=== PATIENT | female | born 1980 | race American Indian/Alaskan Native ===

== ENCOUNTER 2017-12-21 12:12 | Emergency (ER) | payer SELFPAY ==
[2017-12-21 12:26] VITALS: BP 140/92
[2017-12-21] MEDS ORDERED: TYLENOL PO ONE (13:12)
--- NOTE | 2017-12-21 13:18 | Emergency Department Report ---
ED Head Trauma HPI - General Chief complaint: Head Injury Stated complaint: SWOLLEN JAW Time Seen by Provider: 12/21/17 12:52 Source: patient Mode of arrival: Ambulatory Limitations: No Limitations - History of Present Illness Initial comments: Patient is a 37 years old female presented to the ER complaining of right jaw swelling after she was hit by a metal accidentally and her job. Patient denied any head injury or loss of consciousness. No weakness, numbness or tingling sensation. MD Complaint: head injury - Related Data Allergies/Adverse reactions: Allergies Allergy/AdvReac Type Severity Reaction Status Date / Time No Known Allergies Allergy Unverified 12/21/17 12:25 ED Review of Systems ROS: Stated complaint: SWOLLEN JAW Other details as noted in HPI Comment: All other systems reviewed and negative Constitutional: denies: chills, fever Respiratory: denies: cough, orthopnea, shortness of breath, SOB with exertion Cardiovascular: denies: chest pain, palpitations, dyspnea on exertion Gastrointestinal: denies: abdominal pain, nausea, vomiting Musculoskeletal: denies: back pain Neurological: denies: headache, weakness, numbness ED Past Medical Hx - Past Medical History Previous Medical History?: Yes Additional medical history: Congenital adrenal hyperplasia - Surgical History Past Surgical History?: No - Social History Smoking Status: Never Smoker Substance Use Type: None ED Physical Exam - General Limitations: No Limitations General appearance: alert, in no apparent distress - Head Head exam: Present: atraumatic, normocephalic, normal inspection - ENT ENT exam: Present: other (right jaw joint tenderness) - Respiratory Respiratory exam: Present: normal lung sounds bilaterally. Absent: respiratory distress, wheezes, chest wall tenderness, accessory muscle use, decreased breath sounds - Cardiovascular Cardiovascular Exam: Present: regular rate, normal rhythm, normal heart sounds - GI/Abdominal GI/Abdominal exam: Present: soft, normal bowel sounds. Absent: distended, tenderness, guarding, rebound, rigid, organomegaly, mass, bruit, pulsatile mass , hernia - Extremities Exam Extremities exam: Present: normal inspection, full ROM, normal capillary refill - Back Exam Back exam: Present: normal inspection, full ROM. Absent: tenderness, CVA tenderness (R), muscle spasm, paraspinal tenderness, vertebral tenderness - Neurological Exam Neurological exam: Present: alert, oriented X3, CN II-XII intact, normal gait, reflexes normal - Skin Skin exam: Present: warm, intact, normal color ED Course Vital Signs 12/21/17 12:19 Temperature 98.4 F Pulse Rate 75 Respiratory 18 Rate Blood Pressure 140/92 O2 Sat by Pulse 99 Oximetry - Medical Decision Making Patient received a call from her employer asking to go to another facility because it's a work compensation. Patient left in a stable condition. Critical care attestation.: If time is entered above; I have spent that time in minutes in the direct care of this critically ill patient, excluding procedure time. ED Disposition Clinical Impression: Head injury Disposition: DC-01 TO HOME OR SELFCARE Is pt being admited?: No Condition: Stable Instructions: Minor Head Injury (ED) Referrals: PRIMARY CARE, [Primary Care Provider] - 3-5 Days
== END 2017-12-21 13:31 | disposition home or self-care (01) ==
LOC: EDSEX → ED 12:12
DX: S09.8XXA Other specified injuries of head, initial encounter (principal); W22.8XXA Striking against or struck by other objects, initial encounter; Y93.89 Activity, other specified; Y99.8 Other external cause status; Y92.89 Other specified places as the place of occurrence of the external cause

== ENCOUNTER 2019-05-12 17:10 | Inpatient (IN) | payer OTHER ==
[2019-05-12] MEDS ORDERED: DEXTROSE 50% IN WATER (25GM) 50 ML SYRINGE IV ONE (17:45)
[2019-05-12] MEDS ORDERED: SODIUM CHLORIDE 0.9% 1000 ML 2,000 ML ONE (17:46)
[2019-05-12] MEDS ORDERED: ACETAMINOPHEN 650 MG RECT SUPP PR ONE (18:06)
[2019-05-12] MEDS ORDERED: SODIUM CHLORIDE 0.9% 1000 ML 1,000 ML IV ONE ×2 (18:06→18:09)
--- NOTE | 2019-05-12 18:14 | Emergency Department Report ---
ED General Adult HPI - General Chief complaint: Upper Respiratory Infection Stated complaint: AMS Time Seen by Provider: 05/12/19 18:01 Source: patient Mode of arrival: Ambulatory Limitations: No Limitations - History of Present Illness Initial comments: Patient is 38 years old female with history of congenital adrenal hyperplasia. Patient presented to the emergency room via EMS for evaluation of altered mental status. Patient found to have a blood glucose of 48, temperature 102 and tachycardia with a heart rate of 130. Patient is obtunded. No family at bedside. EMS unable to provide further information. Patient is coughing while am examining her. Sepsis protocol initiated. - Related Data Allergies Allergy/AdvReac Type Severity Reaction Status Date / Time No Known Allergies Allergy Unverified 12/21/17 12:25 ED Review of Systems ROS: Stated complaint: AMS Other details as noted in HPI Comment: Unobtainable due to pts medical conditions ED Past Medical Hx - Past Medical History Previous Medical History?: Yes Additional medical history: Congenital adrenal hyperplasia - Surgical History Past Surgical History?: Yes - Social History Smoking Status: Current Some Day Smoker Substance Use Type: None ED Physical Exam - General Limitations: No Limitations General appearance: obtunded - Head Head exam: Present: atraumatic, normocephalic, normal inspection - Eye Eye exam: Present: normal appearance - ENT ENT exam: Present: normal exam, normal orophraynx, mucous membranes moist - Neck Neck exam: Present: normal inspection, full ROM. Absent: tenderness, meningismus - Respiratory Respiratory exam: Present: rales. Absent: wheezes, rhonchi, stridor, accessory muscle use, decreased breath sounds, prolonged expiratory - Cardiovascular Cardiovascular Exam: Present: tachycardia - GI/Abdominal GI/Abdominal exam: Present: soft, normal bowel sounds. Absent: distended, tenderness, guarding, rebound, rigid - Extremities Exam Extremities exam: Present: normal inspection, full ROM, normal capillary refill - Back Exam Back exam: Present: normal inspection, full ROM. Absent: CVA tenderness (R), CVA tenderness (L) - Neurological Exam Neurological exam: Present: altered - Skin Skin exam: Present: warm, intact, normal color ED Course Vital Signs 05/12/19 05/12/19 05/12/19 17:38 17:54 18:00 Temperature 103.1 F H Pulse Rate 122 H 117 H Respiratory 26 H 23 Rate Blood Pressure O2 Sat by Pulse 80 L 69 L Oximetry 05/12/19 05/12/19 05/12/19 18:15 18:31 18:45 Temperature Pulse Rate 121 H 134 H 126 H Respiratory 20 26 H 22 Rate Blood Pressure 129/103 141/92 O2 Sat by Pulse 89 96 96 Oximetry 05/12/19 05/12/19 05/12/19 19:00 19:34 20:00 Temperature Pulse Rate Respiratory 20 Rate Blood Pressure 111/69 101/42 103/49 O2 Sat by Pulse 96 73 L 98 Oximetry 05/12/19 05/12/19 21:01 21:23 Temperature 98.9 F Pulse Rate 113 H Respiratory 21 Rate Blood Pressure 105/60 O2 Sat by Pulse Oximetry ED Medical Decision Making - Lab Data Result diagrams: 05/12/19 18:17 05/12/19 18:32 - Radiology Data Radiology results: report reviewed - Medical Decision Making Patient is 38 years old female with history of congenital adrenal hyperplasia. Patient presented to the emergency room via EMS for evaluation of altered mental status. Patient found to have a blood glucose of 48, temperature 102 and tachycardia with a heart rate of 130. Patient is obtunded. No family at bedside. EMS unable to provide further information. Patient is coughing while am examining her. Sepsis protocol initiated. Patient received 3 L of normal saline with significant improvement in mental status and blood pressure. Patient evaluated by me multiple times. Patient stated that she is feeling better. Patient is awake alert and oriented 3. Patient denied any headache, chest pain or shortness of breath. Patient lactic acid went down from 4.6 to 1.9. Chest x-ray is unremarkable. Labs showed elevated white blood cells. Patient received Zosyn. CT brain and CT abdomen and pelvis is unremarkable. I discussed the patient was Dr. Solomon, he agreed to admit the patient to medical service for further management. Critical Care Time: Yes Critical care time in (mins) excluding proc time.: 30 Critical care attestation.: If time is entered above; I have spent that time in minutes in the direct care of this critically ill patient, excluding procedure time. ED Disposition Clinical Impression: Altered mental status, Hypoglycemia, Sepsis Disposition: OP ADMIT IP TO THIS HOSP Is pt being admited?: Yes Condition: Stable
[2019-05-12 18:52] LABS: Hemoglobin 15.3 gm/dl (10.1-14.3); Mean Corpuscular HGB Conc 33 % (30-34); Mean Corpuscular Volume 85 fl (79-97); Platelet Count 117 K/mm3 (140-440); Red Blood Count 5.41 M/mm3 (3.65-5.03); Red Cell Distribution Width 13.1 % (13.2-15.2)
[2019-05-12] MEDS ORDERED: PIPERACILLIN/TAZOBACTAM 3.375 3.375 GM/50 ML BAG IV ONE (18:56)
[2019-05-12] MEDS ORDERED: DEXTROSE 10% IN WATER 1,000 ML IV SCH (19:00)
[2019-05-12 19:08] LABS: Albumin 3.8 g/dL (3.9-5); Calcium 8.5 mg/dL (8.4-10.2)
--- NOTE | 2019-05-12 19:47 | XRay Report ---
CHEST 1 VIEW INDICATION: chest pain. COMPARISON: None. FINDINGS: Support devices: None. Heart: Within normal limits. Lungs/Pleura: No acute air space or interstitial disease. Additional findings: None. IMPRESSION: No acute abnormality. Signer Name: Pantera Weber MD Signed: 05/12/2019 7:43 PM Workstation Name: [id number]
--- NOTE | 2019-05-12 19:53 | Cat Scan Report ---
CT head/brain wo con INDICATION / CLINICAL INFORMATION: 38 years Female; AMS. TECHNIQUE: Routine CT head without contrast. All CT scans at this location are performed using CT dos e reduction for ALARA by means of automated exposure control. COMPARISON: None. FINDINGS: BRAIN / INTRACRANIAL CONTENTS: The brain appears to demonstrate appropriate attenuation. The ventricu lar system is within normal limits in size and configuration. There is no CT evidence of acute intrac ranial hemorrhage. ORBITS: No significant abnormality of visualized orbits. SINUSES / MASTOIDS: There is scattered at mucosal thickening within the maxillary and visualized ethm oid sinuses. There is also mild mucosal thickening within the right sphenoid sinus. There is incident al note of an empty sella. CRANIOCERVICAL JUNCTION: There is crowding of the cerebellar tonsils at the level the foramen magnum indicative of cerebellar tonsillar ectopia. Again, the ventricular system appears to be appropriate i n size on this single exam. ADDITIONAL FINDINGS: None. IMPRESSION: 1. 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 There is no evidence of hydrocephalus on this single exam or acute intracranial process. 2. There is sinus inflammatory disease as detailed above.. Signer Name: Norman Andrade MD Signed: 05/12/2019 7:49 PM Workstation Name: [id number]
[2019-05-12 21:04] LABS: Basophils % (Manual) 0 % (0.0-1.8); Eosinophils % (Manual) 0 % (0.0-4.3); Total Cells Counted 100
[2019-05-12 21:05] LABS: Anisocytosis Few; Platelet Estimate Consistent w Auto; Poikilocytosis Few
[2019-05-12 21:17] LABS: Bilirubin,Urine NEG (Negative); Blood,Urine LG (Negative); Color,Urine Amber (Yellow); Mucus,Urine FEW /HPF
[2019-05-12] MEDS ORDERED: ONDANSETRON 4 MG/2 ML INJ ONE (21:18)
[2019-05-12 21:23] LABS: Amphetamine Screen,Urine PRESUMPTIVE NEGATIVE; Benzodiazepines Screen,Urine PRESUMPTIVE NEGATIVE; Cannabinoid Screen,Urine PRESUMPTIVE NEGATIVE; Cocaine Screen,Urine PRESUMPTIVE NEGATIVE; Methadone Screen,Urine PRESUMPTIVE NEGATIVE; Opiate Screen,Urine PRESUMPTIVE NEGATIVE
[2019-05-12] MEDS ORDERED: LORazepam 2 MG/ML VIAL ONE (21:30)
[2019-05-12] MEDS: SODIUM CHLORIDE 0.9% 1000 ML 1,000 ML IV SCH (22:00)
--- NOTE | 2019-05-12 23:00 | Cat Scan Report ---
CT ABDOMEN AND PELVIS WITH CONTRAST INDICATION: Unspecified abdominal pain. COMPARISON: No relevant prior imaging study available. TECHNIQUE: Axial, coronal and sagittal CT imaging of the abdomen and pelvis was performed after inje ction of 100 cc Omnipaque [address] scans at this location are performed using CT dose re duction for ALARA by means of automated exposure control. FINDINGS: LOWER CHEST: There is mild bibasilar atelectasis. No additional significant abnormality. LIVER: No significant abnormality. BILIARY: No significant abnormality. PANCREAS: No significant abnormality. SPLEEN: No significant abnormality. ADRENALS: No significant abnormality. KIDNEYS AND URETERS: No significant abnormality. GI TRACT: No significant abnormality of the stomach, small bowel or colon. Unremarkable appendix. PERITONEUM: No free fluid. No free air. No fluid collection. LYMPH NODES: No significant adenopathy. VASCULATURE: No significant abnormality. URINARY BLADDER: No significant abnormality. REPRODUCTIVE ORGANS: A left Bartholin gland cyst measures 2.4 x 2.0 cm on image 94 of series 4. Multi ple probable fibroids measuring up to 3.5 cm are seen within the uterus without an additional signifi cant abnormality. ADDITIONAL FINDINGS: None. SKELETAL SYSTEM: There are mild degenerative changes throughout the spine and along the SI joints wit hout an acute abnormality. IMPRESSION: 1. No acute abnormality of the abdomen or pelvis. 2. Additional findings as above. Signer Name: Alfonso Ortiz MD Signed: 05/12/2019 10:56 PM Workstation Name: [id number]
[2019-05-12] MEDS ORDERED: LORazepam 2 MG/ML VIAL IV ONE (23:47)
[2019-05-13] MEDS ORDERED: MAGNESIUM HYDROXIDE (MOM) ORAL LIQD UDC PO PRN (00:18)
[2019-05-13] MEDS ORDERED: ACETAMINOPHEN 325 MG TAB PO PRN ×2 (00:18→20:21)
[2019-05-13] MEDS ORDERED: ONDANSETRON 4 MG/2 ML INJ IV PRN (00:18)
[2019-05-13] MEDS: PIPERACILLIN/TAZOBACTAM 3.375 3.375 GM/50 ML BAG IV SCH ×2 (06:13→14:05)
[2019-05-13] MEDS: SODIUM CHLORIDE 0.9% 1000 ML 1,000 ML IV SCH ×2 (07:54→16:49)
--- NOTE | 2019-05-13 07:54 | History and Physical Report ---
History of Present Illness Date of examination: 05/12/19 Date of admission: 05/12/19 23:27 Chief complaint: Altered mental status. History of present illness: 38-year-old female with known history of congenital adrenal hyperplasia presented to the emergency room today with a change in mental status. Family members who accompany patient to the ER indicates she has not been acting her usual self over the past 24 hours. She had a low blood sugar glucose of about 48 prior to arrival in the emergency room. Upon arrival in the emergency room she had a temperature of about 103.2, was found to be tachycardic, had elevated white counts and elevated lactic acid. She was started on IV fluid and also on empiric IV antibiotics Her chest x-ray or CT scan of the head, abdomen and pelvis were within normal limits. Past History Past Surgical History: No surgical history Social history: smoking (Current some day smoker) Family history: no significant family history Medications and Allergies Allergies Allergy/AdvReac Type Severity Reaction Status Date / Time No Known Allergies Allergy Unverified 12/21/17 12:25 Active Meds: Active Medications Acetaminophen (Tylenol) 650 mg PO Q6H PRN PRN Reason: Pain MILD(1-3)/Fever >100.5/DACOSTA Sodium Chloride (Nacl 0.9% 1000 Ml) 1,000 mls @ 0 mls/hr IV ONCE YOAV Stop: 05/13/19 23:46 Last Admin: 05/12/19 22:00 Dose: 999 mls/hr Documented by: Sodium Chloride (Nacl 0.9% 1000 Ml) 1,000 mls @ 125 mls/hr IV DIRECT YOAV Piperacillin Sod/Tazobactam Sod (Zosyn/Ns 3.375gm/50ml) 3.375 gm in 50 mls @ 100 mls/hr IV Q8HR YOAV; Protocol Last Admin: 05/13/19 06:13 Dose: 100 mls/hr Documented by: Magnesium Hydroxide (Milk Of Magnesia) 30 ml PO Q4H PRN PRN Reason: Constipation Ondansetron HCl (Zofran) 4 mg IV Q8H PRN PRN Reason: Nausea And Vomiting Sodium Chloride (Sodium Chloride Flush Syringe 10 Ml) 10 ml IV BID YOAV Sodium Chloride (Sodium Chloride Flush Syringe 10 Ml) 10 ml IV PRN PRN PRN Reason: LINE FLUSH Review of Systems ROS unobtainable: due to mental status Neurological: other (Altered mental status) Endocrine: other (Hypoglycemia) Exam - Constitutional Vitals: Temp Pulse Resp BP Pulse Ox 99.7 F H 108 H 18 111/44 98 05/13/19 04:00 05/13/19 04:00 05/13/19 02:31 05/13/19 05:00 05/12/19 20:00 General appearance: Present: no acute distress, well-nourished - EENT Eyes: Present: PERRL, EOM intact ENT: hearing intact, clear oral mucosa, dentition normal - Neck Neck: Present: supple, normal ROM - Respiratory Respiratory effort: normal Respiratory: bilateral: CTA - Cardiovascular Rhythm: regular Heart Sounds: Present: S1 & S2 - Extremities Extremities: no ischemia, pulses intact, No edema, Full ROM Peripheral Pulses: within normal limits - Abdominal General gastrointestinal: Present: soft, non-tender, non-distended - Integumentary Integumentary: Present: clear, warm, dry - Musculoskeletal Musculoskeletal: strength equal bilaterally - Psychiatric Psychiatric: other (Patient appeared slightly confused) - Neurologic Neurologic: CNII-XII intact, moves all extremities Results - Labs CBC & Chem 7: 05/12/19 18:17 05/12/19 18:32 Labs: Abnormal lab results 05/12/19 05/12/19 05/12/19 Range/Units 17:56 18:17 18:17 WBC 14.1 H (4.5-11.0) K/mm3 RBC 5.41 H (3.65-5.03) M/mm3 Hgb 15.3 H (10.1-14.3) gm/dl Hct 46.0 H (30.3-42.9) % RDW 13.1 L (13.2-15.2) % Plt Count 117 L (140-440) K/mm3 Seg Neuts % (Manual) 80.0 H (40.0-70.0) % Lymphocytes % (Manual) 13.0 L (13.4-35.0) % Seg Neutrophils # Man 11.3 H (1.8-7.7) K/mm3 Monocytes # (Manual) 1.0 H (0.0-0.8) K/mm3 Sodium (137-145) mmol/L Carbon Dioxide (22-30) mmol/L BUN (7-17) mg/dL Creatinine (0.7-1.2) mg/dL Glucose (65-100) mg/dL POC Glucose 53 L (70-105) Lactic Acid 4.80 H* (0.7-2.0) mmol/L Total Bilirubin (0.1-1.2) mg/dL Albumin (3.9-5) g/dL 05/12/19 05/12/19 05/12/19 Range/Units 18:21 18:32 23:28 WBC (4.5-11.0) K/mm3 RBC (3.65-5.03) M/mm3 Hgb (10.1-14.3) gm/dl Hct (30.3-42.9) % RDW (13.2-15.2) % Plt Count (140-440) K/mm3 Seg Neuts % (Manual) (40.0-70.0) % Lymphocytes % (Manual) (13.4-35.0) % Seg Neutrophils # Man (1.8-7.7) K/mm3 Monocytes # (Manual) (0.0-0.8) K/mm3 Sodium 133 L (137-145) mmol/L Carbon Dioxide 14 L (22-30) mmol/L BUN 18 H (7-17) mg/dL Creatinine 1.4 H (0.7-1.2) mg/dL Glucose 136 H (65-100) mg/dL POC Glucose 140 H (70-105) Lactic Acid 2.70 H* (0.7-2.0) mmol/L Total Bilirubin 5.10 H (0.1-1.2) mg/dL Albumin 3.8 L (3.9-5) g/dL Assessment and Plan - Patient Problems (1) Altered mental status Current Visit: Yes Status: Acute Plan to address problem: Etiology is unclear however this may be secondary to sepsis. Patient has been placed on IV fluid and empiric IV antibiotics. (2) Hypoglycemia Current Visit: Yes Status: Acute Plan to address problem: We will monitor blood glucose. (3) Sepsis Current Visit: Yes Status: Acute Plan to address problem: She has been placed on empiric IV antibiotics and IV fluid. (4) DVT prophylaxis Current Visit: Yes Status: Acute Plan to address problem: Patient is placed on subcutaneous heparin. (5) Full code status Current Visit: Yes Status: Acute
[2019-05-13] MEDS ORDERED: ACETAMINOPHEN 650 MG RECT SUPP PR PRN (10:50)
--- NOTE | 2019-05-13 14:48 | Progress Note ---
Assessment and Plan Assessment and plan: SIRS/Possible severe sepsis -exact source of inf unknown -CT abd/pelvis and CXR neg -on IV antibiotics with zosyn -blood and sputum cultures pending -ID consulted Acute metabolic encephalopathy -probably 2/2 above -Head CT scan showed cerebellar tonsilar ectopia with empty sella. No acute IC abns -drug screen neg -neurology consulted Acute respt failure with hypoxia -cont 02 supplementation as needed and neb tx Thrombocytopenia -no overt bleeding -will monitor level Hx of congenital adrenal hyperplasia -CT abd/pelvis showed multiple uterine fibroids with LT bartholin gland cyst DVT ppx: SCD due to thrombocytopenia Disp: condition is guarded. cont tx in the MICU History Interval history: Pt is unable to communicate appropriately. Per her nurse, she's having excessive mucus Hospitalist Physical - Constitutional Vitals: Temp Pulse Resp BP Pulse Ox 102.7 F H 115 H 17 114/70 98 05/13/19 08:00 05/13/19 10:01 05/13/19 10:01 05/13/19 10:01 05/13/19 10:01 General appearance: Present: no acute distress, well-nourished - EENT Eyes: Present: PERRL, EOM intact ENT: hearing intact, other (excessive mucus) - Neck Neck: Present: supple - Respiratory Respiratory effort: normal Respiratory: bilateral: rales (bilaterally) - Cardiovascular Rhythm: regular (with tachycardia) Heart Sounds: Present: S1 & S2 - Extremities Extremities: No edema - Abdominal General gastrointestinal: soft, non-tender, normal bowel sounds - Integumentary Integumentary: Present: warm, dry - Psychiatric Psychiatric: other (unable to assess due to AMS) - Neurologic Neurologic: other (pt is disoriented x3) Results - Labs CBC & Chem 7: 05/12/19 18:17 05/12/19 18:32 Labs: Laboratory Last Values WBC 14.1 K/mm3 (4.5-11.0) H 05/12/19 18:17 RBC 5.41 M/mm3 (3.65-5.03) H 05/12/19 18:17 Hgb 15.3 gm/dl (10.1-14.3) H 05/12/19 18:17 Hct 46.0 % (30.3-42.9) H 05/12/19 18:17 MCV 85 fl (79-97) 05/12/19 18:17 MCH 28 pg (28-32) 05/12/19 18:17 MCHC 33 % (30-34) 05/12/19 18:17 RDW 13.1 % (13.2-15.2) L 05/12/19 18:17 Plt Count 117 K/mm3 (140-440) L 05/12/19 18:17 [place] % (Auto) Critical Care Transport Nurse 05/12/19 18:17 Add Manual Diff Complete 05/12/19 18:17 Total Counted 100 05/12/19 18:17 Seg Neuts % (Manual) 80.0 % (40.0-70.0) H 05/12/19 18:17 Band Neutrophils % 0 % 05/12/19 18:17 Lymphocytes % (Manual) 13.0 % (13.4-35.0) L 05/12/19 18:17 Reactive Lymphs % (Man) 0 % 05/12/19 18:17 Monocytes % (Manual) 7.0 % (0.0-7.3) 05/12/19 18:17 Eosinophils % (Manual) 0 % (0.0-4.3) 05/12/19 18:17 Basophils % (Manual) 0 % (0.0-1.8) 05/12/19 18:17 Metamyelocytes % 0 % 05/12/19 18:17 Myelocytes % 0 % 05/12/19 18:17 Promyelocytes % 0 % 05/12/19 18:17 Blast Cells % 0 % 05/12/19 18:17 Nucleated RBC % Not Reportable 05/12/19 18:17 Seg Neutrophils # Man 11.3 K/mm3 (1.8-7.7) H 05/12/19 18:17 Band Neutrophils # 0.0 K/mm3 05/12/19 18:17 Lymphocytes # (Manual) 1.8 K/mm3 (1.2-5.4) 05/12/19 18:17 Abs React Lymphs (Man) 0.0 K/mm3 05/12/19 18:17 Monocytes # (Manual) 1.0 K/mm3 (0.0-0.8) H 05/12/19 18:17 Eosinophils # (Manual) 0.0 K/mm3 (0.0-0.4) 05/12/19 18:17 Basophils # (Manual) 0.0 K/mm3 (0.0-0.1) 05/12/19 18:17 Metamyelocytes # 0.0 K/mm3 05/12/19 18:17 Myelocytes # 0.0 K/mm3 05/12/19 18:17 Promyelocytes # 0.0 K/mm3 05/12/19 18:17 Blast Cells # 0.0 K/mm3 05/12/19 18:17 WBC Morphology Not Reportable 05/12/19 18:17 Hypersegmented Neuts Not Reportable 05/12/19 18:17 Hyposegmented Neuts Not Reportable 05/12/19 18:17 Hypogranular Neuts Not Reportable 05/12/19 18:17 Smudge Cells Not Reportable 05/12/19 18:17 Toxic Granulation Not Reportable 05/12/19 18:17 Toxic Vacuolation Not Reportable 05/12/19 18:17 Dohle Bodies Not Reportable 05/12/19 18:17 Pelger-Huet Anomaly Not Reportable 05/12/19 18:17 Joesph Rods Not Reportable 05/12/19 18:17 Platelet Estimate Consistent w auto 05/12/19 18:17 Clumped Platelets Not Reportable 05/12/19 18:17 Plt Clumps, EDTA Not Reportable 05/12/19 18:17 Large Platelets Not Reportable 05/12/19 18:17 Giant Platelets Not Reportable 05/12/19 18:17 Platelet Satelliting Not Reportable 05/12/19 18:17 Plt Morphology Comment Not Reportable 05/12/19 18:17 RBC Morphology Not Reportable 05/12/19 18:17 Dimorphic RBCs Not Reportable 05/12/19 18:17 Polychromasia Rare 05/12/19 18:17 Hypochromasia Not Reportable 05/12/19 18:17 Poikilocytosis Few 05/12/19 18:17 Anisocytosis Few 05/12/19 18:17 Microcytosis Not Reportable 05/12/19 18:17 Macrocytosis Not Reportable 05/12/19 18:17 Spherocytes Not Reportable 05/12/19 18:17 Pappenheimer Bodies Not Reportable 05/12/19 18:17 Sickle Cells Not Reportable 05/12/19 18:17 Target Cells Not Reportable 05/12/19 18:17 Tear Drop Cells Not Reportable 05/12/19 18:17 Ovalocytes Not Reportable 05/12/19 18:17 Helmet Cells Not Reportable 05/12/19 18:17 [place] Bodies Not Reportable 05/12/19 18:17 [place] Rings Not Reportable 05/12/19 18:17 Rekha Cells Not Reportable 05/12/19 18:17 Bite Cells Not Reportable 05/12/19 18:17 Crenated Cell Not Reportable 05/12/19 18:17 Elliptocytes Not Reportable 05/12/19 18:17 Acanthocytes (Spur) Not Reportable 05/12/19 18:17 Rouleaux Not Reportable 05/12/19 18:17 Hemoglobin C Crystals Not Reportable 05/12/19 18:17 Schistocytes Not Reportable 05/12/19 18:17 Malaria parasites Not Reportable 05/12/19 18:17 Denzel Bodies Not Reportable 05/12/19 18:17 Hem Pathologist Commnt No 05/12/19 18:17 Sodium 133 mmol/L (137-145) L 05/12/19 18:32 Potassium 3.7 mmol/L (3.6-5.0) 05/12/19 18:32 Chloride 98.4 mmol/L (98-107) 05/12/19 18:32 Carbon Dioxide 14 mmol/L (22-30) L 05/12/19 18:32 Anion Gap 24 mmol/L 05/12/19 18:32 BUN 18 mg/dL (7-17) H 05/12/19 18:32 Creatinine 1.4 mg/dL (0.7-1.2) H 05/12/19 18:32 Estimated GFR 50 ml/min 05/12/19 18:32 BUN/Creatinine Ratio 13 % 05/12/19 18:32 Glucose 136 mg/dL (65-100) H 05/12/19 18:32 POC Glucose 93 (70-105) 05/13/19 02:07 Lactic Acid 1.20 mmol/L (0.7-2.0) 05/13/19 01:08 Calcium 8.5 mg/dL (8.4-10.2) 05/12/19 18:32 Total Bilirubin 5.10 mg/dL (0.1-1.2) H 05/12/19 18:32 AST 38 units/L (5-40) 05/12/19 18:32 ALT 15 units/L (7-56) 05/12/19 18:32 Alkaline Phosphatase 60 units/L (35-129) 05/12/19 18:32 Total Protein 6.4 g/dL (6.3-8.2) 05/12/19 18:32 Albumin 3.8 g/dL (3.9-5) L 05/12/19 18:32 Albumin/Globulin Ratio 1.5 % 05/12/19 18:32 Urine Color [place] (Yellow) 05/12/19 21:05 Urine Turbidity Slightly-cloudy (Clear) 05/12/19 21:05 Urine pH 5.0 (5.0-7.0) 05/12/19 21:05 Ur Specific [place] 1.021 (1.003-1.030) 05/12/19 21:05 Urine Protein 30 mg/dl mg/dL (Negative) 05/12/19 21:05 Urine Glucose (UA) 50 mg/dL (Negative) 05/12/19 21:05 Urine Ketones 20 mg/dL (Negative) 05/12/19 21:05 Urine Blood Lg (Negative) 05/12/19 21:05 Urine Nitrite Neg (Negative) 05/12/19 21:05 Urine Bilirubin Neg (Negative) 05/12/19 21:05 Urine Urobilinogen 2.0 mg/dL (<2.0) 05/12/19 21:05 Ur Leukocyte Esterase Neg (Negative) 05/12/19 21:05 Urine WBC (Auto) 1.0 /HPF (0.0-6.0) 05/12/19 21:05 Urine RBC (Auto) 30.0 /HPF (0.0-6.0) 05/12/19 21:05 Urine Mucus Few /HPF 05/12/19 21:05 Urine Opiates Screen Presumptive negative 05/12/19 21:05 Urine Methadone Screen Presumptive negative 05/12/19 21:05 Ur Barbiturates Screen Presumptive negative 05/12/19 21:05 Ur Phencyclidine Scrn Presumptive negative 05/12/19 21:05 Ur Amphetamines Screen Presumptive negative 05/12/19 21:05 U Benzodiazepines Scrn Presumptive negative 05/12/19 21:05 Urine Cocaine Screen Presumptive negative 05/12/19 21:05 U Marijuana (THC) Screen Presumptive negative 05/12/19 21:05 Drugs of Abuse Note Disclamer 05/12/19 21:05 Plasma/Serum Alcohol < 0.01 % (0-0.07) 05/12/19 20:23 Active Medications - Current Medications Current Medications: Generic Name Dose Route Start Last Admin Trade Name Freq PRN Reason Stop Dose Admin Acetaminophen 650 mg 05/13/19 10:50 Tylenol AK Q6H PRN Pain, Mild (1-3)/Temp >100.5 Sodium Chloride 1,000 mls @ 0 mls/hr 05/12/19 23:45 05/12/19 22:00 Nacl 0.9% 1000 Ml IV 05/13/19 23:46 999 mls/hr ONCE YOAV Administration As Directed Sodium Chloride 1,000 mls @ 125 mls/hr 05/13/19 00:30 05/13/19 07:54 Nacl 0.9% 1000 Ml IV 125 mls/hr DIRECT YOAV Administration Piperacillin Sod/Tazobactam Sod 3.375 gm in 50 mls @ 100 mls/hr 05/13/19 06:00 05/13/19 14:05 Zosyn/Ns 3.375gm/50ml IV 100 mls/hr Q8HR YOAV Administration Protocol Magnesium Hydroxide 30 ml 05/13/19 00:18 Milk Of Magnesia PO Q4H PRN Constipation Ondansetron HCl 4 mg 05/13/19 00:18 Zofran IV Q8H PRN Nausea And Vomiting Sodium Chloride 10 ml 05/13/19 10:00 05/13/19 11:11 Sodium Chloride Flush Syringe 10 Ml IV 10 ml BID YOAV Administration Sodium Chloride 10 ml 05/13/19 00:18 Sodium Chloride Flush Syringe 10 Ml IV PRN PRN LINE FLUSH Nutrition/Malnutrition Assess - Dietary Evaluation Nutrition/Malnutrition Findings: Nutrition Notes Start: 05/13/19 13:25 Freq: Status: Active Protocol: Document 05/13/19 13:25 DW (Rec: 05/13/19 13:40 DW [id number]) Co-Sign 05/13/19 13:25 LM Nutrition Notes Need for Assessment generated from: MD Order,consultant [employer]. vice president [employer] (ex ),MST, Education Initial or Follow up Brief Note Current Diagnosis Sepsis Other Pertinent Diagnosis Congenital Adrenal Hyperplasia , AMS, Hypoglycemia, DVT Current Diet Cardiac Diet Labs/Tests Glu 136 Pertinent Medications Reviewed Height 5 ft 4 in Weight 64.864 kg [place] Body Weight (kg) 54.54 BMI 24.5 Weight Status Appropriate Subjective/Other Information MD consult for education/RN screen for MST Per nurse pt did not eat breakfast. Nurse said pt throat is sore. Unable to obtain nutrition related hx d/ t AMS Burn Absent Trauma Absent Is patient on ventilator? No Is Patient Ambulatory and/or Out of Bed No REE-(Hughes-St. Jeor-confined to bed) 9210.297 Calculation Used for Recommendations Hughes-St Jeor Additional Notes PRO needs: 52-65g (0.8-1 g/kg) Fluid needs: 1 ml/kcal Nutrition Intervention Change Diet Order: Continue Current Diet Anticipated Discharge Needs: Cardiac Diet Follow-Up By: 05/14/19 Additional Comments FU for assessment/diet education needs
--- NOTE | 2019-05-13 14:58 | Consultation ---
History of Present Illness - Reason for Consult Consult date: 05/13/19 Sepsis Requesting physician: PATRICIO LANIER - History of Present Illness The patient is a 38-year-old female with known history of congenital adrenal hyperplasia admitted yesterday with AMS and fever. Found to have low glucose of 48, fever, leucocytosis and sepsis. Apparently she was complaining of sore throat for a few days prior to coming in. Was empirically started on abx. ID was consulted for additional evaluation. Mental status improving at the time of my evaluation. pile driver operator helper by occupation. Does not take any home medications. Patient stopped taking her meds when she turned 19 when she could not pay for her meds. Review of Systems: General: fever, chills HEENT: no new visual disturbance Respiratory: No cough, sputum, hemoptysis or shortness of breath Cardiovascular: No chest pain, syncope Gastrointestinal: No nausea, vomiting or diarrhea Genitourinary: No dysuria or hematuria Musculoskeletal: No new or worsening neck pain or back pain Neurologic: No headaches, seizures Hematologic: No easy bruising or bleeding Endocrine: No night sweats or acute weight loss Skin: negative for rash, jaundice Psychiatric: No suicidal or homicidal ideation Past History Past Surgical History: No surgical history Social history: smoking (Current some day smoker) Family history: no significant family history Medications and Allergies Allergies Allergy/AdvReac Type Severity Reaction Status Date / Time No Known Allergies Allergy Unverified 12/21/17 12:25 Active Meds: Active Medications Acetaminophen (Tylenol) 650 mg SC Q6H PRN PRN Reason: Pain, Mild (1-3)/Temp >100.5 Albuterol/Ipratropium (Duoneb *Not For Prn Use*) 1 ampul IH Q6HRT YOAV Sodium Chloride (Nacl 0.9% 1000 Ml) 1,000 mls @ 0 mls/hr IV ONCE YOAV Stop: 05/13/19 23:46 Last Admin: 05/12/19 22:00 Dose: 999 mls/hr Documented by: Sodium Chloride (Nacl 0.9% 1000 Ml) 1,000 mls @ 125 mls/hr IV DIRECT YOAV Last Admin: 05/13/19 07:54 Dose: 125 mls/hr Documented by: Piperacillin Sod/Tazobactam Sod (Zosyn/Ns 3.375gm/50ml) 3.375 gm in 50 mls @ 100 mls/hr IV Q8HR [facility]; Protocol Last Admin: 05/13/19 14:05 Dose: 100 mls/hr Documented by: Magnesium Hydroxide (Milk Of Magnesia) 30 ml PO Q4H PRN PRN Reason: Constipation Ondansetron HCl (Zofran) 4 mg IV Q8H PRN PRN Reason: Nausea And Vomiting Sodium Chloride (Sodium Chloride Flush Syringe 10 Ml) 10 ml IV BID [facility] Last Admin: 05/13/19 11:11 Dose: 10 ml Documented by: Sodium Chloride (Sodium Chloride Flush Syringe 10 Ml) 10 ml IV PRN PRN PRN Reason: LINE FLUSH Physical Examination - Physical Exam Narrative exam: Physical Exam: Constitutional: Alert, cooperative. No acute distress Head, Ears, Nose: Normocephalic, atraumatic. External ears, nose normal Eyes: Conjunctivae/corneas clear. No icterus. No ptosis. Neck: Supple, no meningeal signs, R neck swelling + Oral: extremely poor dentition, no thrush Cardiovascular: S1, S2 normal. Respiratory: Good air entry, clear to auscultation bilaterally GI: Soft, non-tender; bowel sounds normal. No peritoneal signs Musculoskeletal: No pedal edema, no cyanosis. Skin: No rash or abscess Hem/Lymphatic: No palpable cervical or supraclavicular nodes. No lymphangitis Psych: Mood ok. Affect normal Neurological: Awake, alert, oriented - Constitutional Vitals: Vital Signs Temp Pulse Resp BP Pulse Ox 102.7 F H 115 H 17 114/70 98 05/13/19 08:00 05/13/19 10:01 05/13/19 10:01 05/13/19 10:01 05/13/19 10:01 Temperature -Last 24 Hours Temperature 102.7 F Temperature 99.7 F Temperature 98.9 F Temperature 103.1 F Results - Labs CBC & Chem 7: 05/12/19 18:17 05/12/19 18:32 Labs: Abnormal lab results 05/12/19 05/12/19 05/12/19 Range/Units 17:56 18:17 18:17 WBC 14.1 H (4.5-11.0) K/mm3 RBC 5.41 H (3.65-5.03) M/mm3 Hgb 15.3 H (10.1-14.3) gm/dl Hct 46.0 H (30.3-42.9) % RDW 13.1 L (13.2-15.2) % Plt Count 117 L (140-440) K/mm3 Seg Neuts % (Manual) 80.0 H (40.0-70.0) % Lymphocytes % (Manual) 13.0 L (13.4-35.0) % Seg Neutrophils # Man 11.3 H (1.8-7.7) K/mm3 Monocytes # (Manual) 1.0 H (0.0-0.8) K/mm3 Sodium (137-145) mmol/L Carbon Dioxide (22-30) mmol/L BUN (7-17) mg/dL Creatinine (0.7-1.2) mg/dL Glucose (65-100) mg/dL POC Glucose 53 L (70-105) Lactic Acid 4.80 H* (0.7-2.0) mmol/L Total Bilirubin (0.1-1.2) mg/dL Albumin (3.9-5) g/dL 05/12/19 05/12/19 05/12/19 Range/Units 18:21 18:32 23:28 WBC (4.5-11.0) K/mm3 RBC (3.65-5.03) M/mm3 Hgb (10.1-14.3) gm/dl Hct (30.3-42.9) % RDW (13.2-15.2) % Plt Count (140-440) K/mm3 Seg Neuts % (Manual) (40.0-70.0) % Lymphocytes % (Manual) (13.4-35.0) % Seg Neutrophils # Man (1.8-7.7) K/mm3 Monocytes # (Manual) (0.0-0.8) K/mm3 Sodium 133 L (137-145) mmol/L Carbon Dioxide 14 L (22-30) mmol/L BUN 18 H (7-17) mg/dL Creatinine 1.4 H (0.7-1.2) mg/dL Glucose 136 H (65-100) mg/dL POC Glucose 140 H (70-105) Lactic Acid 2.70 H* (0.7-2.0) mmol/L Total Bilirubin 5.10 H (0.1-1.2) mg/dL Albumin 3.8 L (3.9-5) g/dL - Imaging and Cardiology Chest x-ray: report reviewed, image reviewed (no pneumonia) CT scan - abdomen: report reviewed, image reviewed (no acute abnormality noted) Assessment and Plan Cultures: 05/12/2019 blood culture: In progress 05/13/2019 blood culture: In progress A/P: 38-year-old female with known history of congenital adrenal hyperplasia, not on any home meds (stopped at age 19) admitted with: #Sepsis, leukocytosis: Chest x-ray without pneumonia, UA without pyuria, no urinary or abdominal symptoms. Patient is extremely poor, has been complaining of some sore throat, does seem to have some swelling on the right side of the neck, will order CT scan to evaluate for deep space infections. Mental status is much improved, no meningeal signs, unlikely meningitis. #Congenital adrenal hyperplasia: Patient stopped taking her meds when she turned 19 when she could not pay for her meds. #Acute encephalopathy: transient, now back to normal. Recs: Discontinued vancomycin Continue IV Zosyn 4.[address] soft tissue of the neck with IV contrast ordered to evaluate for deep space infections of the neck Wesley Krishnamurthy MD, FACP [facility] ([facility]) C: [phone] O: [phone] F: [phone]
[2019-05-13] MEDS: IPRATROPIUM/ALBUTEROL SULFATE 3 ML AMPUL.NEB IH SCH (19:35)
[2019-05-13] MEDS: PIPERACIL/TAZOBACTA 4.5/NS 100 4.5 GM/100 ML VIAL IV SCH (21:43)
[2019-05-14] MEDS: SODIUM CHLORIDE 0.9% 1000 ML 1,000 ML IV SCH ×2 (01:31→10:48)
[2019-05-14] MEDS: IPRATROPIUM/ALBUTEROL SULFATE 3 ML AMPUL.NEB IH SCH ×5 (02:10→21:00)
[2019-05-14 05:09] LABS: Hematocrit 39.1 % (30.3-42.9); Hemoglobin 13.4 gm/dl (10.1-14.3); Mean Corpuscular HGB Conc 34 % (30-34); Mean Corpuscular Volume 84 fl (79-97); Platelet Count 102 K/mm3 (140-440); Red Blood Count 4.67 M/mm3 (3.65-5.03); Red Cell Distribution Width 13.2 % (13.2-15.2)
[2019-05-14 05:13] LABS: INR 1.46 (0.87-1.13)
[2019-05-14 05:14] LABS: Partial Thromboplastin Time 29.6 Sec. (24.2-36.6)
[2019-05-14 05:23] LABS: BUN/Creatinine Ratio 9; Blood Urea Nitrogen 7 mg/dL (7-17); Calcium 8.2 mg/dL (8.4-10.2); Hemolysis Index 1
[2019-05-14] MEDS: PIPERACIL/TAZOBACTA 4.5/NS 100 4.5 GM/100 ML VIAL IV SCH ×3 (06:10→21:41)
[2019-05-14 06:52] LABS: Band Neutrophils # (Manual) 1.2 K/mm3; Basophils % (Manual) 0 % (0.0-1.8); Eosinophils % (Manual) 0 % (0.0-4.3); Total Cells Counted 100
[2019-05-14 06:54] LABS: Anisocytosis Few; Burr Cells Rare; Poikilocytosis Rare
[2019-05-14 06:55] LABS: Platelet Estimate Consistent w Auto
--- NOTE | 2019-05-14 13:30 | Progress Note ---
Assessment and Plan Cultures: 05/12/2019 blood culture: no growth thus far 05/13/2019 blood culture: no growth thus far A/P: 38-year-old female with known history of congenital adrenal hyperplasia, not on any home meds (stopped at age 19) admitted with: #Sepsis, leukocytosis: Chest x-ray without pneumonia, UA without pyuria, no urinary or abdominal symptoms. Improving. Patient has extremely poor dentition, has been complaining of some sore throat, does seem to have some swelling on the right side of the neck, awaiting CT scan results to evaluate for deep space infections. Mental status is much improved, no meningeal signs, unlikely meningitis. #Congenital adrenal hyperplasia: Patient stopped taking her meds when she turned 19 when she could not pay for her meds. #Acute encephalopathy: transient, now back to normal. Recs: Continue IV Zosyn 4.5 gm q8 hrs f/u blood culture and CT neck results Wesley Krishnamurthy MD, FACP [facility] ([facility]) C: [phone] O: [phone] F: [phone] Subjective Date of service: 05/14/19 Interval history: No fever today. Sore throat is also better. Got CT neck done, awaiting results. Family at bedside, all questions answered. Objective - Exam Narrative Exam: Physical Exam: Constitutional: Alert, cooperative. No acute distress Head, Ears, Nose: Normocephalic, atraumatic. External ears, nose normal Eyes: Conjunctivae/corneas clear. No icterus. No ptosis. Neck: Supple, no meningeal signs, mild R neck swelling + Oral: extremely poor dentition, no thrush Cardiovascular: S1, S2 normal. Respiratory: Good air entry, clear to auscultation bilaterally GI: Soft, non-tender; bowel sounds normal. No peritoneal signs Musculoskeletal: No pedal edema, no cyanosis. Skin: No rash or abscess Hem/Lymphatic: No palpable cervical or supraclavicular nodes. No lymphangitis Psych: Mood ok. Affect normal Neurological: Awake, alert, oriented - Constitutional Vitals: Vital Signs Temp Pulse Resp BP Pulse Ox 98.6 F 106 H 17 104/58 99 05/14/19 08:00 05/14/19 12:00 05/14/19 12:00 05/14/19 12:00 05/14/19 12:00 Temperature -Last 24 Hours Temperature 98.6 F Temperature 98.0 F Temperature 98.6 F Temperature 100.7 F Temperature 100.7 F Temperature 100.3 F - Labs CBC & Chem 7: 05/14/19 04:35 05/14/19 04:35 Labs: Abnormal lab results 05/14/19 05/14/19 05/14/19 Range/Units 04:35 04:35 04:35 Plt Count 102 L (140-440) K/mm3 Lymphocytes % (Manual) 6.0 L (13.4-35.0) % Monocytes % (Manual) 16.0 H (0.0-7.3) % Lymphocytes # (Manual) 0.5 L (1.2-5.4) K/mm3 Monocytes # (Manual) 1.3 H (0.0-0.8) K/mm3 PT 17.5 H (12.2-14.9) Sec. INR 1.46 H (0.87-1.13) Carbon Dioxide 21 L D (22-30) mmol/L Calcium 8.2 L (8.4-10.2) mg/dL
--- NOTE | 2019-05-14 13:39 | Cat Scan Report ---
CT NECK WITH CONTRAST HISTORY: Sepsis, evaluate for deep space infection of the neck COMPARISON: None. TECHNIQUE: Routine CT of the neck is performed following 100 cc of Omnipaque 300. Sagittal and perdomo l reformatted images. FINDINGS: Skull Base: No significant abnormality. Parotid, Carotid, Retropharyngeal, Prevertebral, Pharyngeal Mucosal, and Speedometer Mechanic Spaces: No abnorm al mass, enhancing lesion or other significant abnormality. Airway: Patent and without significant abnormality. Lymphatics: No lymphadenopathy. Vasculature: No significant abnormality. Osseous Structures: There are prominent calcifications in the posterior longitudinal ligament of the cervical spine extending from C2-C7. This appears to result in severe central canal narrowing particu larly at the level of C3-4. Additional findings: There is very poor dentition with multiple dental caries identified. There also appear to be multiple small periapical tooth abscesses. IMPRESSION: No evidence for abscess or deep space infection in the neck. 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 Please see above. Poor dentition with evidence of multiple small periapical tooth abscesses. Signer Name: Efrain Park Jr, MD Signed: 05/14/2019 1:35 PM Workstation Name: [id number]
[2019-05-15] MEDS: SODIUM CHLORIDE 0.9% 1000 ML 1,000 ML IV SCH (01:43)
[2019-05-15] MEDS: IPRATROPIUM/ALBUTEROL SULFATE 3 ML AMPUL.NEB IH SCH ×4 (02:37→19:59)
[2019-05-15] MEDS: PIPERACIL/TAZOBACTA 4.5/NS 100 4.5 GM/100 ML VIAL IV SCH (05:35)
--- NOTE | 2019-05-15 06:31 | Progress Note ---
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 No acute IC abns -drug screen neg -neurology consult appreciated Improving Acute respt failure with hypoxia -cont 02 supplementation as needed and neb tx Thrombocytopenia -no overt bleeding -will monitor level Hx of congenital adrenal hyperplasia -CT abd/pelvis showed multiple uterine fibroids with LT bartholin gland cyst DVT ppx: SCD due to thrombocytopenia CCT 34 minutes Disp: condition is guarded. cont tx in the MICU Subjective Date of service: 05/14/19 Principal diagnosis: Sepsis,Hypoglycemia Interval history: 38-year-old female with known history of congenital adrenal hyperplasia presented to the emergency room today with a change in mental status. Family members who accompany patient to the ER indicates she has not been acting her usual self over the past 24 hours. She had a low blood sugar glucose of about 48 prior to arrival in the emergency room. Upon arrival in the emergency room she had a temperature of about 103.2, was f ound to be tachycardic, had elevated white counts and elevated lactic acid. She was started on IV fluid and also on empiric IV antibiotics Her chest x-ray or CT scan of the head, abdomen and pelvis were within normal limits. Interval improvement is there.Mentation better. Objective - Constitutional Vitals: Vital Signs - 12hr 05/14/19 05/14/19 05/14/19 19:00 20:00 21:00 Temperature 98.2 F Pulse Rate 98 H 93 H 97 H Pulse Rate [ 95 H Bilateral Throughout] Pulse Rate [ 95 H From Monitor] Respiratory 19 17 14 Rate Respiratory 20 Rate [Bilateral Throughout] Blood Pressure 100/50 100/50 100/50 O2 Sat by Pulse 100 99 100 Oximetry 05/14/19 05/14/19 05/14/19 22:00 23:00 23:55 Temperature 97.6 F Pulse Rate 101 H 95 H Pulse Rate [ Bilateral Throughout] Pulse Rate [ From Monitor] Respiratory 12 14 Rate Respiratory Rate [Bilateral Throughout] Blood Pressure 103/55 103/55 O2 Sat by Pulse 100 100 Oximetry 05/15/19 05/15/19 05/15/19 00:00 00:04 01:00 Temperature Pulse Rate 97 H 99 H 92 H Pulse Rate [ Bilateral Throughout] Pulse Rate [ 93 H From Monitor] Respiratory 14 14 14 Rate Respiratory Rate [Bilateral Throughout] Blood Pressure 95/60 106/57 115/61 O2 Sat by Pulse 99 100 100 Oximetry 05/15/19 05/15/19 05/15/19 02:00 02:37 03:00 Temperature 98.1 F Pulse Rate 92 H 103 H Pulse Rate [ 94 H Bilateral Throughout] Pulse Rate [ From Monitor] Respiratory 14 18 Rate Respiratory 20 Rate [Bilateral Throughout] Blood Pressure 110/64 110/64 O2 Sat by Pulse 100 100 Oximetry 05/15/19 05/15/19 05/15/19 04:00 05:00 06:00 Temperature Pulse Rate 95 H 99 H 96 H Pulse Rate [ Bilateral Throughout] Pulse Rate [ 95 H From Monitor] Respiratory 17 14 16 Rate Respiratory Rate [Bilateral Throughout] Blood Pressure 83/33 106/58 120/59 O2 Sat by Pulse 99 98 99 Oximetry General appearance: Present: no acute distress, well-nourished - EENT Eyes: PERRL, EOM intact ENT: hearing intact, clear oral mucosa Ears: bilateral: normal - Neck Neck: supple, normal ROM - Respiratory Respiratory effort: normal Respiratory: bilateral: CTA, rhonchi - Breasts Breasts: normal - Cardiovascular Heart rate: 98 Rhythm: regular Heart Sounds: Present: S1 & S2. Absent: gallop, rub Extremities: pulses intact, No edema, normal color, Full ROM - Gastrointestinal General gastrointestinal: Present: soft, non-tender, non-distended, normal bowel sounds - Genitourinary Female genitourinary: normal - Integumentary Integumentary: clear, warm, dry - Musculoskeletal Musculoskeletal: 1, strength equal bilaterally - Neurologic Neurologic: moves all extremities - Psychiatric Psychiatric: memory intact, appropriate mood/affect, intact judgment & insight - Labs CBC & Chem 7: 05/14/19 04:35 05/14/19 04:35 Labs: Abnormal lab results 05/14/19 Range/Units 04:35 Lymphocytes % (Manual) 6.0 L (13.4-35.0) % Monocytes % (Manual) 16.0 H (0.0-7.3) % Lymphocytes # (Manual) 0.5 L (1.2-5.4) K/mm3 Monocytes # (Manual) 1.3 H (0.0-0.8) K/mm3
[2019-05-15 07:58] LABS: Basophils % (Auto) 0.3 % (0.0-1.8); Eosinophils # (Auto) 0.1 K/mm3 (0.0-0.4); Eosinophils % (Auto) 1.6 % (0.0-4.3); Hemoglobin 12.2 gm/dl (10.1-14.3); Lymphocytes % (Auto) 16.6 % (13.4-35.0); Mean Corpuscular HGB Conc 35 % (30-34); Mean Corpuscular Volume 83 fl (79-97); Monocytes # (Auto) 0.7 K/mm3 (0.0-0.8); Platelet Count 121 K/mm3 (140-440); Red Blood Count 4.21 M/mm3 (3.65-5.03); Red Cell Distribution Width 13.4 % (13.2-15.2)
[2019-05-15 08:12] LABS: BUN/Creatinine Ratio 7; Blood Urea Nitrogen 5 mg/dL (7-17); Calcium 8.5 mg/dL (8.4-10.2); Hemolysis Index 5
[2019-05-15] MEDS ORDERED: PHENOL 1.4% 177 ML BOTTLE MM PRN (09:42)
[2019-05-15] MEDS ORDERED: ALBUTEROL 2.5 MG/3 ML NEBU IH PRN (10:02)
--- NOTE | 2019-05-15 10:19 | Progress Note ---
Assessment and Plan Cultures: 05/12/2019 blood culture: no growth thus far 05/13/2019 blood culture: no growth thus far A/P: 38-year-old female with known history of congenital adrenal hyperplasia, not on any home meds (stopped at age 19) admitted with: #Sepsis, leukocytosis: Chest x-ray without pneumonia, UA without pyuria, no urinary or abdominal symptoms. Patient has extremely poor dentition, CT scan of the neck did not show any deep space infection but showed multiple small periapical tooth abscesses. Sepsis has resolved. Mental status is much improved, no meningeal signs, unlikely meningitis. #Congenital adrenal hyperplasia: Patient stopped taking her meds when she turned 19 when she could not pay for her meds. #Acute encephalopathy: transient, now back to normal. Recs: discontinued Zosyn switched to PO Augmentin 875 mg BID x 7 days patient was advised to follow up with a dentist upon discharge for dental extractions of her infected teeth. She verbalized understanding. Wesley Krishnamurthy MD, FACP [facility] ([facility]) C: [phone] O: [phone] F: [phone] Subjective Date of service: 05/15/19 Principal diagnosis: Sepsis,Hypoglycemia Interval history: No fever. Overall, feeling much better. Tolerating IV abx. No sore throat or swelling. Objective - Exam Narrative Exam: Physical Exam: Constitutional: Alert, cooperative. No acute distress Head, Ears, Nose: Normocephalic, atraumatic. External ears, nose normal Eyes: Conjunctivae/corneas clear. No icterus. No ptosis. Neck: Supple, no meningeal signs, non tender Oral: extremely poor dentition, no thrush Cardiovascular: S1, S2 normal. Respiratory: Good air entry, clear to auscultation bilaterally GI: Soft, non-tender; bowel sounds normal. No peritoneal signs Musculoskeletal: No pedal edema, no cyanosis. Skin: No rash or abscess Hem/Lymphatic: No palpable cervical or supraclavicular nodes. No lymphangitis Psych: Mood ok. Affect normal Neurological: Awake, alert, oriented - Constitutional Vitals: Vital Signs Temp Pulse Resp BP Pulse Ox 97.8 F 101 H 12 120/59 98 05/15/19 08:00 05/15/19 09:00 05/15/19 09:00 05/15/19 09:00 05/15/19 10:00 Temperature -Last 24 Hours Temperature 97.8 F Temperature 98.1 F Temperature 97.6 F Temperature 98.2 F Temperature 99.1 F Temperature 98.2 F - Labs CBC & Chem 7: 05/15/19 07:25 05/15/19 07:25 Labs: Abnormal lab results 05/15/19 05/15/19 Range/Units 07:25 07:25 MCHC 35 H (30-34) % Plt Count 121 L (140-440) K/mm3 [place] % (Auto) 13.0 H (0.0-7.3) % Lymph # 1.0 L (1.2-5.4) K/mm3 BUN 5 L (7-17) mg/dL - Imaging and cardiology CT Scan - head: report reviewed, image reviewed (CT neck images reviewed, show multiple small periapical tooth abscesses)
[2019-05-15] MEDS: AMOXICILLIN/K CLAV 875/125MG TAB PO SCH ×2 (12:30→22:00)
--- NOTE | 2019-05-15 16:29 | Progress Note ---
Assessment and Plan Assessment and plan: Sepsis -CT abd/pelvis and CXR neg discontinued Zosyn switched to PO Augmentin 875 mg BID x 7 days patient was advised to follow up with a dentist upon discharge for dental extractions of her infected teeth. She verbalized understanding. 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 No acute IC abns -drug screen neg -neurology consult appreciated Improving Acute resp failure with hypoxia -cont 02 supplementation as needed and neb tx Thrombocytopenia -no overt bleeding -will monitor level Hx of congenital adrenal hyperplasia -CT abd/pelvis showed multiple uterine fibroids with LT bartholin gland cyst DVT ppx: SCD due to thrombocytopenia History Interval history: No new issues overnight Hospitalist Physical - Constitutional Vitals: Temp Pulse Resp BP Pulse Ox 97.6 F 101 H 12 120/59 98 05/15/19 12:00 05/15/19 09:00 05/15/19 09:00 05/15/19 09:00 05/15/19 10:00 General appearance: Present: no acute distress, well-nourished Results - Labs CBC & Chem 7: 05/15/19 07:25 05/15/19 07:25 Labs: Laboratory Last Values WBC 5.7 K/mm3 (4.5-11.0) 05/15/19 07:25 RBC 4.21 M/mm3 (3.65-5.03) 05/15/19 07:25 Hgb 12.2 gm/dl (10.1-14.3) 05/15/19 07:25 Hct 35.0 % (30.3-42.9) 05/15/19 07:25 MCV 83 fl (79-97) 05/15/19 07:25 MCH 29 pg (28-32) 05/15/19 07:25 MCHC 35 % (30-34) H 05/15/19 07:25 RDW 13.4 % (13.2-15.2) 05/15/19 07:25 Plt Count 121 K/mm3 (140-440) L 05/15/19 07:25 Lymph % (Auto) 16.6 % (13.4-35.0) 05/15/19 07:25 [place] % (Auto) 13.0 % (0.0-7.3) H 05/15/19 07:25 Eos % (Auto) 1.6 % (0.0-4.3) 05/15/19 07:25 Baso % (Auto) 0.3 % (0.0-1.8) 05/15/19 07:25 Lymph # 1.0 K/mm3 (1.2-5.4) L 05/15/19 07:25 Drew # 0.7 K/mm3 (0.0-0.8) 05/15/19 07:25 Eos # 0.1 K/mm3 (0.0-0.4) 05/15/19 07:25 Baso # 0.0 K/mm3 (0.0-0.1) 05/15/19 07:25 Add Manual Diff Complete 05/14/19 04:35 Total Counted 100 05/14/19 04:35 Seg Neutrophils % 68.5 % (40.0-70.0) 05/15/19 07:25 Seg Neuts % (Manual) 64.0 % (40.0-70.0) 05/14/19 04:35 Band Neutrophils % 14.0 % 05/14/19 04:35 Lymphocytes % (Manual) 6.0 % (13.4-35.0) L 05/14/19 04:35 Reactive Lymphs % (Man) 0 % 05/14/19 04:35 Monocytes % (Manual) 16.0 % (0.0-7.3) H 05/14/19 04:35 Eosinophils % (Manual) 0 % (0.0-4.3) 05/14/19 04:35 Basophils % (Manual) 0 % (0.0-1.8) 05/14/19 04:35 Metamyelocytes % 0 % 05/14/19 04:35 Myelocytes % 0 % 05/14/19 04:35 Promyelocytes % 0 % 05/14/19 04:35 Blast Cells % 0 % 05/14/19 04:35 Nucleated RBC % Not Reportable 05/14/19 04:35 Seg Neutrophils # 3.9 K/mm3 (1.8-7.7) 05/15/19 07:25 Seg Neutrophils # Man 5.3 K/mm3 (1.8-7.7) 05/14/19 04:35 Band Neutrophils # 1.2 K/mm3 05/14/19 04:35 Lymphocytes # (Manual) 0.5 K/mm3 (1.2-5.4) L 05/14/19 04:35 Abs React Lymphs (Man) 0.0 K/mm3 05/14/19 04:35 Monocytes # (Manual) 1.3 K/mm3 (0.0-0.8) H 05/14/19 04:35 Eosinophils # (Manual) 0.0 K/mm3 (0.0-0.4) 05/14/19 04:35 Basophils # (Manual) 0.0 K/mm3 (0.0-0.1) 05/14/19 04:35 Metamyelocytes # 0.0 K/mm3 05/14/19 04:35 Myelocytes # 0.0 K/mm3 05/14/19 04:35 Promyelocytes # 0.0 K/mm3 05/14/19 04:35 Blast Cells # 0.0 K/mm3 05/14/19 04:35 WBC Morphology Not Reportable 05/14/19 04:35 Hypersegmented Neuts Not Reportable 05/14/19 04:35 Hyposegmented Neuts Not Reportable 05/14/19 04:35 Hypogranular Neuts Not Reportable 05/14/19 04:35 Smudge Cells Not Reportable 05/14/19 04:35 Toxic Granulation Not Reportable 05/14/19 04:35 Toxic Vacuolation Not Reportable 05/14/19 04:35 Dohle Bodies Not Reportable 05/14/19 04:35 Pelger-Huet Anomaly Not Reportable 05/14/19 04:35 Joesph Rods Not Reportable 05/14/19 04:35 Platelet Estimate Consistent w auto 05/14/19 04:35 Clumped Platelets Not Reportable 05/14/19 04:35 Plt Clumps, EDTA Not Reportable 05/14/19 04:35 Large Platelets Not Reportable 05/14/19 04:35 Giant Platelets Not Reportable 05/14/19 04:35 Platelet Satelliting Not Reportable 05/14/19 04:35 Plt Morphology Comment Not Reportable 05/14/19 04:35 RBC Morphology Not Reportable 05/14/19 04:35 Dimorphic RBCs Not Reportable 05/14/19 04:35 Polychromasia Not Reportable 05/14/19 04:35 Hypochromasia Not Reportable 05/14/19 04:35 Poikilocytosis Rare 05/14/19 04:35 Anisocytosis Few 05/14/19 04:35 Microcytosis Not Reportable 05/14/19 04:35 Macrocytosis Not Reportable 05/14/19 04:35 Spherocytes Not Reportable 05/14/19 04:35 Pappenheimer Bodies Not Reportable 05/14/19 04:35 Sickle Cells Not Reportable 05/14/19 04:35 Target Cells Not Reportable 05/14/19 04:35 Tear Drop Cells Not Reportable 05/14/19 04:35 Ovalocytes Not Reportable 05/14/19 04:35 Helmet Cells Not Reportable 05/14/19 04:35 [place] Bodies Not Reportable 05/14/19 04:35 [place] Rings Not Reportable 05/14/19 04:35 Rekha Cells Rare 05/14/19 04:35 Bite Cells Not Reportable 05/14/19 04:35 Crenated Cell Not Reportable 05/14/19 04:35 Elliptocytes Not Reportable 05/14/19 04:35 Acanthocytes (Spur) Not Reportable 05/14/19 04:35 Rouleaux Not Reportable 05/14/19 04:35 Hemoglobin C Crystals Not Reportable 05/14/19 04:35 Schistocytes Not Reportable 05/14/19 04:35 Malaria parasites Not Reportable 05/14/19 04:35 Denzel Bodies Not Reportable 05/14/19 04:35 Hem Pathologist Commnt No 05/14/19 04:35 PT 17.5 Sec. (12.2-14.9) H 05/14/19 04:35 INR 1.46 (0.87-1.13) H 05/14/19 04:35 APTT 29.6 Sec. (24.2-36.6) 05/14/19 04:35 Sodium 137 mmol/L (137-145) 05/15/19 07:25 Potassium 3.6 mmol/L (3.6-5.0) 05/15/19 07:25 Chloride 103.5 mmol/L (98-107) 05/15/19 07:25 Carbon Dioxide 22 mmol/L (22-30) 05/15/19 07:25 Anion Gap 15 mmol/L 05/15/19 07:25 BUN 5 mg/dL (7-17) L 05/15/19 07:25 Creatinine 0.7 mg/dL (0.7-1.2) 05/15/19 07:25 Estimated GFR > 60 ml/min 05/15/19 07:25 BUN/Creatinine Ratio 7 % 05/15/19 07:25 Glucose 96 mg/dL (65-100) 05/15/19 07:25 POC Glucose 93 (70-105) 05/13/19 02:07 Lactic Acid 1.20 mmol/L (0.7-2.0) 05/13/19 01:08 Calcium 8.5 mg/dL (8.4-10.2) 05/15/19 07:25 Total Bilirubin 5.10 mg/dL (0.1-1.2) H 05/12/19 18:32 AST 38 units/L (5-40) 05/12/19 18:32 ALT 15 units/L (7-56) 05/12/19 18:32 Alkaline Phosphatase 60 units/L (35-129) 05/12/19 18:32 Total Protein 6.4 g/dL (6.3-8.2) 05/12/19 18:32 Albumin 3.8 g/dL (3.9-5) L 05/12/19 18:32 Albumin/Globulin Ratio 1.5 % 05/12/19 18:32 Urine Color [place] (Yellow) 05/12/19 21:05 Urine Turbidity Slightly-cloudy (Clear) 05/12/19 21:05 Urine pH 5.0 (5.0-7.0) 05/12/19 21:05 Ur Specific [place] 1.021 (1.003-1.030) 05/12/19 21:05 Urine Protein 30 mg/dl mg/dL (Negative) 05/12/19 21:05 Urine Glucose (UA) 50 mg/dL (Negative) 05/12/19 21:05 Urine Ketones 20 mg/dL (Negative) 05/12/19 21:05 Urine Blood Lg (Negative) 05/12/19 21:05 Urine Nitrite Neg (Negative) 05/12/19 21:05 Urine Bilirubin Neg (Negative) 05/12/19 21:05 Urine Urobilinogen 2.0 mg/dL (<2.0) 05/12/19 21:05 Ur Leukocyte Esterase Neg (Negative) 05/12/19 21:05 Urine WBC (Auto) 1.0 /HPF (0.0-6.0) 05/12/19 21:05 Urine RBC (Auto) 30.0 /HPF (0.0-6.0) 05/12/19 21:05 Urine Mucus Few /HPF 05/12/19 21:05 Urine Opiates Screen Presumptive negative 05/12/19 21:05 Urine Methadone Screen Presumptive negative 05/12/19 21:05 Ur Barbiturates Screen Presumptive negative 05/12/19 21:05 Ur Phencyclidine Scrn Presumptive negative 05/12/19 21:05 Ur Amphetamines Screen Presumptive negative 05/12/19 21:05 U Benzodiazepines Scrn Presumptive negative 05/12/19 21:05 Urine Cocaine Screen Presumptive negative 05/12/19 21:05 U Marijuana (THC) Screen Presumptive negative 05/12/19 21:05 Drugs of Abuse Note Disclamer 05/12/19 21:05 Plasma/Serum Alcohol < 0.01 % (0-0.07) 05/12/19 20:23 Active Medications - Current Medications Current Medications: Generic Name Dose Route Start Last Admin Trade Name Freq PRN Reason Stop Dose Admin Acetaminophen 650 mg 05/13/19 20:21 05/13/19 20:37 Tylenol PO 650 mg Q6H PRN Administration Pain, Mild (1-3)/ Fever> 100.5 Albuterol 2.5 mg 05/15/19 10:02 Proventil IH Q4HRT PRN Shortness Of Breath Albuterol/Ipratropium 1 ampul 05/15/19 14:00 05/15/19 14:26 Duoneb *Not For Prn Use* IH Not Given TIDRT YOAV Amoxicillin/Clavulanate Potassium 1 each 05/15/19 11:00 05/15/19 12:30 Augmentin 875 Mg PO 05/22/19 10:59 1 each Q12HR YOAV Administration Sodium Chloride 1,000 mls @ 125 mls/hr 05/13/19 00:30 05/15/19 01:43 Nacl 0.9% 1000 Ml IV 125 mls/hr DIRECT YOAV Administration Magnesium Hydroxide 30 ml 05/13/19 00:18 Milk Of Magnesia PO Q4H PRN Constipation Ondansetron HCl 4 mg 05/13/19 00:18 Zofran IV Q8H PRN Nausea And Vomiting Phenol 1 spray 05/15/19 09:42 05/15/19 15:12 Chloraseptic MM 1 spray PRN PRN Administration Sore Throat Sodium Chloride 10 ml 05/13/19 10:00 05/15/19 10:11 Sodium Chloride Flush Syringe 10 Ml IV 10 ml BID YOAV Administration Sodium Chloride 10 ml 05/13/19 00:18 Sodium Chloride Flush Syringe 10 Ml IV PRN PRN LINE FLUSH Nutrition/Malnutrition Assess - Dietary Evaluation Nutrition/Malnutrition Findings: Nutrition Notes Start: 05/13/19 13:2 5 Freq: Status: Active Protocol: Document 05/14/19 12:20 DW (Rec: 05/14/19 12:29 DW [id number]) Co-Sign 05/14/19 12:20 LP Nutrition Notes Initial or Follow up Brief Note Current Diagnosis Sepsis Other Pertinent Diagnosis Congenital Adrenal Hyperplasia , AMS, Hypoglycemia, DVT Current Diet Mechanical Soft Labs/Tests Reviewed Pertinent Medications Reviewed Height 5 ft 4 in Weight 67.1 kg [place] Body Weight (kg) 54.54 BMI 25.4 Weight Status Appropriate Subjective/Other Information FU assessment Upon arrival pt stated she was not able to consume breakfast and stated she cannot eat large meals at the moment. Pt also stated she was not able to eat anything since 05/10/19. Pt stated she has no recent wt loss Burn Absent Trauma Absent GI Symptoms None Minimum of two criteria No #1 Nutrition Diagnosis Inadequate energy intake Etiology pt not eating for 4 days As Evidenced by Signs and Symptoms pt consuming 0% of meals Is patient on ventilator? No Is Patient Ambulatory and/or Out of Bed No REE-([facility]-confined to bed) 4971.118 Calculation Used for Recommendations [facility] Additional Notes PRO needs: 52-65g (0.8-1 g/kg) Fluid needs: 1 ml/kcal Nutrition Intervention Change Diet Order: Continue Current Diet Add Supplement/Snack (indicate name/kcal Ensure Enlive BID /protein ) Provides kCal: 700 Provides Protein (gm) 40 Goal #1 Meet at least 80% of kcal/PRO needs via PO/ONS Anticipated Discharge Needs: Regualr Diet Follow-Up By: 05/16/19 Additional Comments FU PO/ONS intakes
[2019-05-16] MEDS: SODIUM CHLORIDE 0.9% 1000 ML 1,000 ML IV SCH (07:05)
[2019-05-16] MEDS: AMOXICILLIN/K CLAV 875/125MG TAB PO SCH (09:29)
--- NOTE | 2019-05-16 09:46 | Discharge Summary ---
Providers - Providers Date of Admission: 05/12/19 23:27 Date of discharge: 05/16/19 Attending physician: JAMA DEGROOT 05/13/19 00:19 Consult to Dietitian/Nutrition [CONS] Routine Physician Instructions: Reason For Exam: Reason for Consult: Diet education 05/13/19 10:23 Speech Therapy Evaluation and Treat [CONS] Urgent Reason For Exam: pt c/o of sore throat and trouble with swallowing 05/13/19 10:39 Consult to Physician [CONS] Routine Comment: Consulting Provider: MARY TOLLIVER Physician Instructions: Reason For Exam: AMS Consult to Physician [CONS] Routine Comment: Consulting Provider: ESTRELLITA ONTIVEROS Physician Instructions: Reason For Exam: possible sepsis Primary care physician: [employer] Hospitalization Reason for admission: sepsis Condition: Stable Hospital course: 38-year-old female with known history of congenital adrenal hyperplasia, not on any home meds (stopped at age 19) admitted with diagnosis of sepsis, toxic metabolic encephalopathy and acute hypoxic respiratory failure. The patient was noted to have Chest x-ray without pneumonia, UA without pyuria, no urinary or abdominal symptoms. However, Patient has extremely poor dentition. Therefore, CT scan of the neck was obtained and did not show any deep space infection but showed multiple small periapical tooth abscesses. ID was consulted and managed antibiotics. Patient was initially treated with Zosyn which was later discontinued and changed to Augmentin twice a day. ID advised the patient to follow up with a dentist upon discharge for dental extractions of her infected teeth. She verbalized understanding. Complete Augmentin antibiotics 7 days. Dedicated discharge time 32 minutes. Disposition: TO HOME OR SELFCARE Time spent for discharge: 32 - Discharge Diagnoses (1) Toxic metabolic encephalopathy Status: Acute (2) Tooth abscess Status: Acute (3) Congenital adrenal hyperplasia Status: Acute (4) Sepsis Status: Acute Core Measure Documentation - Palliative Care Palliative Care/ Comfort Measures: Not Applicable - Core Measures Any of the following diagnoses?: none Exam - Constitutional Vitals: Temp Pulse Resp BP Pulse Ox 99.0 F 90 18 113/70 96 05/15/19 22:11 05/16/19 00:00 05/15/19 22:11 05/15/19 22:11 05/16/19 00:09 General appearance: Present: no acute distress, well-nourished - EENT Eyes: Present: PERRL ENT: hearing intact, clear oral mucosa - Neck Neck: Present: supple, normal ROM - Respiratory Respiratory effort: normal Respiratory: bilateral: CTA - Cardiovascular Heart Sounds: Present: S1 & S2. Absent: rub, click - Extremities Extremities: pulses symmetrical, No edema Peripheral Pulses: within normal limits - Abdominal General gastrointestinal: Present: soft, non-tender, non-distended, normal bowel sounds Female genitourinary: Present: normal - Integumentary Integumentary: Present: clear, warm, dry - Musculoskeletal Musculoskeletal: gait normal, strength equal bilaterally - Psychiatric Psychiatric: appropriate mood/affect, intact judgment & insight - Neurologic Neurologic: CNII-XII intact, moves all extremities Plan Activity: advance as tolerated Weight Bearing Status: Weight Bear as Tolerated Diet: regular Follow up with: PRIMARY CARE, [Primary Care Provider] - 3-5 Days ESTRELLITA ONTIVEROS MD [Staff Physician] - 7 Days Prescriptions: Amoxicillin/K Clav Tab [Augmentin 875MG TAB] 1 each PO Q12HR #14 tablet
[2019-05-16] MEDS: IPRATROPIUM/ALBUTEROL SULFATE 3 ML AMPUL.NEB IH SCH ×3 (10:35→14:01)
[2019-05-16 14:36] VITALS: BP 105/68
--- NOTE | 2019-05-16 14:55 | Progress Note ---
Assessment and Plan Cultures: 05/12/2019 blood culture: no growth thus far 05/13/2019 blood culture: no growth thus far A/P: 38-year-old female with known history of congenital adrenal hyperplasia, not on any home meds (stopped at age 19) admitted with: #Sepsis, leukocytosis: Chest x-ray without pneumonia, UA without pyuria, no urinary or abdominal symptoms. Patient has extremely poor dentition, CT scan of the neck did not show any deep space infection but showed multiple small periapical tooth abscesses. Sepsis has resolved. Mental status is much improved, no meningeal signs, unlikely meningitis. #Congenital adrenal hyperplasia: Patient stopped taking her meds when she turned 19 when she could not pay for her meds. #Acute encephalopathy: transient, now back to normal. Recs: OK for discharge on PO Augmentin 875 mg BID x 7 days patient was advised to follow up with a dentist upon discharge for dental extractions of her infected teeth. She verbalized understanding. Wesley Krishnamurthy MD, FACP [facility] ([facility]) C: [phone] O: [phone] F: [phone] Subjective Date of service: 05/16/19 Principal diagnosis: Sepsis,Hypoglycemia Interval history: No fever. Continues to feel well. Hoping to get discharged. Tolerated PO Abx. Objective - Exam Narrative Exam: Physical Exam: Constitutional: Alert, cooperative. No acute distress Head, Ears, Nose: Normocephalic, atraumatic. External ears, nose normal Eyes: Conjunctivae/corneas clear. No icterus. No ptosis. Neck: Supple, no meningeal signs, non tender Oral: extremely poor dentition, no thrush Cardiovascular: S1, S2 normal. Respiratory: Good air entry, clear to auscultation bilaterally GI: Soft, non-tender; bowel sounds normal. No peritoneal signs Musculoskeletal: No pedal edema, no cyanosis. Skin: No rash or abscess Hem/Lymphatic: No palpable cervical or supraclavicular nodes. No lymphangitis Psych: Mood ok. Affect normal Neurological: Awake, alert, oriented - Constitutional Vitals: Vital Signs Temp Pulse Resp BP Pulse Ox 98.3 F 84 16 105/68 96 05/16/19 12:18 05/16/19 12:18 05/16/19 12:18 05/16/19 12:18 05/16/19 12:18 Temperature -Last 24 Hours Temperature 98.3 F Temperature 98.7 F Temperature 99.0 F Temperature 98.3 F - Labs CBC & Chem 7: 05/15/19 07:25 05/15/19 07:25
== END 2019-05-16 15:53 | disposition home or self-care (01) | DRG 871 ==
LOC: ED 17:10 → IMCU 23:27 → 3A 05-15 20:38
PROVIDERS: ADMIT Internal Medicine Geriatric Medicine; ATTEND Hospitalist
DX: A41.9 Sepsis, unspecified organism (principal); J96.01 Acute respiratory failure with hypoxia; G92 Toxic encephalopathy; E16.2 Hypoglycemia, unspecified; F17.210 Nicotine dependence, cigarettes, uncomplicated; D69.6 Thrombocytopenia, unspecified; K04.7 Periapical abscess without sinus; D25.9 Leiomyoma of uterus, unspecified; N75.0 Cyst of Bartholin's gland; E25.0 Congenital adrenogenital disorders associated with enzyme deficiency
CPT/HCPCS: 36415; 70450; 70491; 71045; 74177; 80048; 80053; 80307; 80320; 81001; 82140; 82962; 85007; 85025; 85610; 85730; 87040; 87205; 93005; 93010; 94640; 96361; 96365; 96375; G0378; G0480; J2060; J2405; J2543; J7030; Q9967

== ENCOUNTER 2019-07-29 05:15 | Emergency (ER) | payer OTHER ==
[2019-07-29] MEDS ORDERED: IBUPROFEN 800 MG TAB PO ONE (06:11)
--- NOTE | 2019-07-29 06:16 | Emergency Department Report ---
ED Abdominal Pain HPI - General Chief Complaint: Abdominal Pain Stated Complaint: LT SIDE PAIN Source: patient Mode of arrival: Ambulatory Limitations: No Limitations - History of Present Illness Initial Comments: Ms. Wellington is a 39-year-old -[place] female who presents for left flank pain radiating to suprapubic x3 days. There is no fever or chills, no nausea vomiting. Patient does endorse urinary frequencyand urgency there is no hematuria. There is no vaginal discharge, no vaginal bleeding. Patient is not , she unable to conceive. MD Complaint: flank pain Onset/Timin -: days(s) Location: suprapubic, L flank Radiation: none Migration to: L flank Severity: moderate Severity scale (0 -10): 4 Quality: aching Consistency: intermittent Improves With: nothing Worsens With: other (voiding) Associated Symptoms: dysuria. denies: nausea, vomiting, fever, chills, hematuria - Related Data LMP (females 10-50): other (unable to conceive / barren) Previous Rx's Medication Instructions Recorded Last Taken Type Amoxicillin/K Clav Tab [Augmentin 1 each PO Q12HR #14 tablet 05/16/19 Unknown Rx 875MG TAB] Ibuprofen [Motrin 800 MG tab] 800 mg PO Q8HR PRN #30 tablet 07/29/19 Unknown Rx Nitrofurantoin [place]/M-Cryst 100 mg PO BID 7 Days #14 capsule 07/29/19 Unknown Rx [Macrobid CAP] Allergies Allergy/AdvReac Type Severity Reaction Status Date / Time No Known Allergies Allergy Verified 07/29/19 05:21 ED Review of Systems ROS: Stated complaint: LT SIDE PAIN Other details as noted in HPI Constitutional: denies: chills, fever Eyes: denies: eye pain, eye discharge, vision change ENT: denies: ear pain, throat pain Respiratory: denies: cough, shortness of breath, wheezing Cardiovascular: denies: chest pain, palpitations Endocrine: no symptoms reported Gastrointestinal: abdominal pain (superpubic ). denies: nausea, vomiting Genitourinary: urgency, dysuria, frequency. denies: hematuria, discharge Musculoskeletal: denies: back pain, joint swelling, arthralgia Skin: denies: rash, lesions Neurological: denies: headache, weakness, paresthesias Psychiatric: denies: anxiety, depression Hematological/Lymphatic: denies: easy bleeding, easy bruising ED Past Medical Hx - Past Medical History Previous Medical History?: Yes Hx Congestive Heart Failure: No Hx Diabetes: No Hx Asthma: No Hx COPD: No Additional medical history: Congenital adrenal hyperplasia - Surgical History Past Surgical History?: No - Social History Smoking Status: Never Smoker Substance Use Type: None - Medications Home Medications: Home Medications Medication Instructions Recorded Confirmed Last Taken Type Amoxicillin/K Clav Tab [Augmentin 1 each PO Q12HR #14 tablet 05/16/19 Unknown Rx 875MG TAB] Ibuprofen [Motrin 800 MG tab] 800 mg PO Q8HR PRN #30 tablet 07/29/19 Unknown Rx Nitrofurantoin [place]/M-Cryst 100 mg PO BID 7 Days #14 capsule 07/29/19 Unknown Rx [Macrobid CAP] ED Physical Exam - General Limitations: No Limitations General appearance: alert, in no apparent distress - Head Head exam: Present: atraumatic, normocephalic - Eye Eye exam: Present: normal appearance, PERRL, EOMI Pupils: Present: normal accommodation - ENT ENT exam: Present: mucous membranes moist - Neck Neck exam: Present: normal inspection, full ROM. Absent: tenderness - Respiratory Respiratory exam: Present: normal lung sounds bilaterally. Absent: respiratory distress, wheezes, stridor - Cardiovascular Cardiovascular Exam: Present: regular rate, normal rhythm, normal heart sounds. Absent: systolic murmur, diastolic murmur, rubs, gallop - GI/Abdominal GI/Abdominal exam: Present: soft, normal bowel sounds. Absent: distended, tenderness, guarding, rebound, rigid, bruit, hernia - Rectal Rectal exam: Present: deferred - Extremities Exam Extremities exam: Present: normal inspection, full ROM. Absent: tenderness - Back Exam Back exam: Present: normal inspection, full ROM. Absent: tenderness, CVA tend erness (R), CVA tenderness (L) - Neurological Exam Neurological exam: Present: alert, oriented X3, CN II-XII intact, normal gait - Psychiatric Psychiatric exam: Present: normal affect, normal mood - Skin Skin exam: Present: warm, dry, intact, normal color. Absent: rash ED Course Vital Signs 07/29/19 07/29/19 05:18 06:19 Temperature 98.4 F Pulse Rate 80 Respiratory 18 18 Rate Blood Pressure 126/84 O2 Sat by Pulse 99 Oximetry ED Medical Decision Making - Lab Data Labs 07/29/19 06:37 Urine Color Yellow Urine Turbidity Clear Urine pH 5.0 Ur Specific [place] 1.016 Urine Protein <15 mg/dl Urine Glucose (UA) Neg Urine Ketones Neg Urine Blood Mod Urine Nitrite Neg Urine Bilirubin Neg Urine Urobilinogen < 2.0 Ur Leukocyte Esterase Neg Urine WBC (Auto) 1.0 Urine RBC (Auto) 4.0 U Epithel Cells (Auto) < 1.0 - Medical Decision Making ua noted mild rbc, there is no fever or chills, no n/v , lungs sounds are clear throughout, no chest wall or flank pain. pain is relieved with nsaids, will tx for dysuria with rx for ibuprofen and macrobid, pt will follow up with pcp in 2- 3 days, pt verbalized agreement and understanding of discharge plan. Critical care attestation.: If time is entered above; I have spent that time in minutes in the direct care of this critically ill patient, excluding procedure time. ED Disposition Clinical Impression: Dysuria Disposition: DC-01 TO HOME OR SELFCARE Is pt being admited?: No Does the pt Need Aspirin: No Condition: Stable Instructions: Dysuria (ED) Prescriptions: Nitrofurantoin [place]/M-Cryst [Macrobid CAP] 100 mg PO BID 7 Days #14 capsule Ibuprofen [Motrin 800 MG tab] 800 mg PO Q8HR PRN #30 tablet PRN Reason: pain Referrals: ELISEO ISAAC MD [Staff Physician] - 3-5 Days Forms: Work/School Release Form(ED) Time of Disposition: 07:03
[2019-07-29 06:25] VITALS: BP 126/84
[2019-07-29 06:45] LABS: Bilirubin,Urine NEG (Negative); Blood,Urine MOD (Negative); Color,Urine Yellow (Yellow); Protein,Urine <15 mg/dL mg/dL (Negative); Urobilinogen,Urine < 2.0 mg/dL (<2.0)
== END 2019-07-29 07:21 | disposition home or self-care (01) ==
LOC: ED 05:15
DX: R30.0 Dysuria (principal); R35.0 Frequency of micturition; R39.15 Urgency of urination
CPT/HCPCS: 81001

== ENCOUNTER 2019-08-27 05:22 | Emergency (ER) | payer OTHER ==
[2019-08-27 06:01] LABS: Basophils % (Auto) 0.2 % (0.0-1.8); Eosinophils # (Auto) 0.1 K/mm3 (0.0-0.4); Eosinophils % (Auto) 2.1 % (0.0-4.3); Hematocrit 52.1 % (30.3-42.9); Hemoglobin 17.5 gm/dl (10.1-14.3); Lymphocytes # (Auto) 0.9 K/mm3 (1.2-5.4); Lymphocytes % (Auto) 14.5 % (13.4-35.0); Mean Corpuscular HGB Conc 34 % (30-34); Mean Corpuscular Volume 84 fl (79-97); Monocytes % (Auto) 15.6 % (0.0-7.3); Platelet Count 130 K/mm3 (140-440); Red Blood Count 6.18 M/mm3 (3.65-5.03); Red Cell Distribution Width 12.9 % (13.2-15.2)
[2019-08-27 06:18] LABS: Alanine Aminotransferase 64 units/L (7-56); Albumin 4.2 g/dL (3.9-5); BUN/Creatinine Ratio 16; Blood Urea Nitrogen 16 mg/dL (7-17); Calcium 9.7 mg/dL (8.4-10.2); Hemolysis Index 7
[2019-08-27] MEDS ORDERED: KETOROLAC 60 MG/2 ML INJ IVP ONE (07:42)
[2019-08-27] MEDS ORDERED: ALUM-MAG HYDROXIDE-SIMETHICONE 200-200-20MG/5ML ORAL LIQD 30 ML PO ONE (07:42)
[2019-08-27] MEDS ORDERED: LIDOCAINE VISCOUS 2% 15 ML ORAL LIQD PO ONE (07:42)
[2019-08-27] MEDS ORDERED: ONDANSETRON 4 MG/2 ML INJ IV ONE (07:42)
[2019-08-27] MEDS ORDERED: SODIUM CHLORIDE 0.9% 1000 ML 1,000 ML IV ONE (07:42)
--- NOTE | 2019-08-27 07:42 | Emergency Department Report ---
ED Abdominal Pain HPI - General Chief Complaint: Abdominal Pain Stated Complaint: ABDOMINAL PAIN Time Seen by Provider: 08/27/19 07:26 Source: patient, family Mode of arrival: Ambulatory Limitations: No Limitations - History of Present Illness Initial Comments: This is a 39-year-old female here with abdominal pain that is 7 out of 10 and reported vomiting yesterday diarrhea x1 this morning and generalized weakness since yesterday. Denies any fever or chills. Denies any urinary burning frequency urgency. Denies any back pain. She has a history of congenital adrenal hyperplasia otherwise no other history denies any sore throat cough or shortness of breath. Pain is 7 out of 10 crampy and intermittent. Denies taking any medication prior to coming to the emergency room. MD Complaint: abdominal pain Onset/Timin -: days(s) Location: diffuse Radiation: none Migration to: no migration Severity: severe Severity scale (0 -10): 7 Quality: cramping Consistency: intermittent Improves With: nothing Worsens With: nothing Associated Symptoms: nausea, vomiting, diarrhea. denies: fever, chills, constipation, dysuria, hematemesis, hematochezia, melena, hematuria, anorexia, syncope Treatments Prior to Arrival: other (None) - Related Data LMP (females 10-50): other (No periods since age 19) Previous Rx's Medication Instructions Recorded Last Taken Type Amoxicillin/K Clav Tab [Augmentin 1 each PO Q12HR #14 tablet 05/16/19 Unknown Rx 875MG TAB] Ibuprofen [Motrin 800 MG tab] 800 mg PO Q8HR PRN #30 tablet 07/29/19 Unknown Rx Nitrofurantoin [place]/M-Cryst 100 mg PO BID 7 Days #14 capsule 07/29/19 Unknown Rx [Macrobid CAP] Ondansetron [Zofran ODT TAB] 8 mg PO Q8HR PRN #12 tab.rapdis 08/27/19 Unknown Rx Sulfamethoxazole/Trimethoprim 1 each PO BID 5 Days #10 tablet 08/27/19 Unknown Rx [Bactrim DS TAB] Allergies Allergy/AdvReac Type Severity Reaction Status Date / Time No Known Allergies Allergy Verified 07/29/19 05:21 ED Review of Systems ROS: Stated complaint: ABDOMINAL PAIN Other details as noted in HPI Constitutional: weakness. denies: chills, fever Eyes: denies: eye discharge ENT: denies: throat pain, dental pain, congestion Respiratory: denies: cough, shortness of breath, wheezing Cardiovascular: denies: chest pain, palpitations, dyspnea on exertion, edema, syncope Gastrointestinal: abdominal pain, nausea, vomiting, diarrhea. denies: constipation, hematemesis, melena, hematochezia Genitourinary: denies: dysuria, hematuria, abnormal menses, dyspareunia Musculoskeletal: denies: back pain, joint swelling, arthralgia, myalgia Skin: denies: rash Neurological: denies: headache ED Past Medical Hx - Past Medical History Previous Medical History?: Yes Hx Congestive Heart Failure: No Hx Diabetes: No Hx Asthma: No Hx COPD: No Additional medical history: Congenital adrenal hyperplasia - Surgical History Past Surgical History?: No - Family History Family history: hypertension - Social History Smoking Status: Never Smoker Substance Use Type: None - Medications Home Medications: Home Medications Medication Instructions Recorded Confirmed Last Taken Type Amoxicillin/K Clav Tab [Augmentin 1 each PO Q12HR #14 tablet 05/16/19 Unknown Rx 875MG TAB] Ibuprofen [Motrin 800 MG tab] 800 mg PO Q8HR PRN #30 tablet 07/29/19 Unknown Rx Nitrofurantoin [place]/M-Cryst 100 mg PO BID 7 Days #14 capsule 07/29/19 Unknown Rx [Macrobid CAP] Ondansetron [Zofran ODT TAB] 8 mg PO Q8HR PRN #12 tab.rapdis 08/27/19 Unknown Rx Sulfamethoxazole/Trimethoprim 1 each PO BID 5 Days #10 tablet 08/27/19 Unknown Rx [Bactrim DS TAB] ED Physical Exam - General Limitations: No Limitations General appearance: alert, in no apparent distress - Head Head exam: Present: atraumatic, normocephalic - Eye Eye exam: Present: normal appearance, PERRL, EOMI Pupils: Present: normal accommodation - ENT ENT exam: Present: normal exam, normal orophraynx, mucous membranes moist - Neck Neck exam: Present: normal inspection, full ROM. Absent: tenderness, lymphadenopathy - Respiratory Respiratory exam: Present: normal lung sounds bilaterally. Absent: respiratory distress, chest wall tenderness - Cardiovascular Cardiovascular Exam: Present: regular rate, normal rhythm, normal heart sounds - GI/Abdominal GI/Abdominal exam: Present: soft, tenderness (Mid to lower quadrant), normal b owel sounds. Absent: distended, guarding, rebound, rigid, organomegaly, mass, bruit, pulsatile mass, hernia - Extremities Exam Extremities exam: Present: normal inspection, full ROM, normal capillary refill, other (No cce. + 2 pulses in all extremities, no neurovascular compromise). Absent: tenderness, pedal edema, joint swelling, calf tenderness - Back Exam Back exam: Present: full ROM, other (Ambulates without any difficulties). Absent: normal inspection, tenderness, CVA tenderness (R), CVA tenderness (L), muscle spasm, paraspinal tenderness, vertebral tenderness, rash noted - Neurological Exam Neurological exam: Present: alert, oriented X3, normal gait - Psychiatric Psychiatric exam: Present: normal affect, normal mood - Skin Skin exam: Present: warm, dry, intact, normal color. Absent: rash ED Course Vital Signs 08/27/19 08/27/19 08/27/19 05:26 08:05 13:47 Temperature 98.1 F Pulse Rate 86 88 Respiratory 18 18 18 Rate Blood Pressure 93/66 Blood Pressure 110/66 [Left] O2 Sat by Pulse 98 99 Oximetry - Reevaluation(s) Reevaluation #1: 08/27/19 11:10 Patient stable throughout ED course. Patient given Toradol 30 mg IV, Zofran 8 mg IV and 1 L of normal saline. She was also given lidocaine 15 cc and Maalox 30 cc p.o. Abdominal pain is better. Still awaiting CT scan of the abdomen pelvis Reevaluation #2: 08/27/19 11:35 Patient stable at present. I spoke with Dr. kinney regarding patient presentation and laboratory results. I also spoke with him regarding patient CT scan and patient's pending ultrasound right upper quadrant abdomen. She is in no acute distress at present and updated on plans. Abdominal exam unchanged Reevaluation #3: 08/27/19 13:18 Ultrasound report normal findings. Patient is stable and says she is feeling a lot better. She is able to tolerate oral fluids and no nausea or vomiting. 08/27/19 13:19. Normal abdominal exam ED Medical Decision Making - Lab Data Result diagrams: 08/27/19 05:35 08/27/19 05:35 Lab Results 08/27/19 08/27/19 08/27/19 Range/Units 05:35 05:35 Unknown WBC 6.4 (4.5-11.0) K/mm3 RBC 6.18 H (3.65-5.03) M/mm3 Hgb 17.5 H (10.1-14.3) gm/dl Hct 52.1 H (30.3-42.9) % MCV 84 (79-97) fl MCH 28 (28-32) pg MCHC 34 (30-34) % RDW 12.9 L (13.2-15.2) % Plt Count 130 L (140-440) K/mm3 Lymph % (Auto) 14.5 (13.4-35.0) % [place] % (Auto) 15.6 H (0.0-7.3) % Eos % (Auto) 2.1 (0.0-4.3) % Baso % (Auto) 0.2 (0.0-1.8) % Lymph # 0.9 L (1.2-5.4) K/mm3 [place] # 1.0 H (0.0-0.8) K/mm3 Eos # 0.1 (0.0-0.4) K/mm3 Baso # 0.0 (0.0-0.1) K/mm3 Seg Neutrophils % 67.6 (40.0-70.0) % Seg Neutrophils # 4.3 (1.8-7.7) K/mm3 Sodium 135 L (137-145) mmol/L Potassium 5.1 H (3.6-5.0) mmol/L Chloride 97.6 L (98-107) mmol/L Carbon Dioxide 21 L (22-30) mmol/L Anion Gap 22 mmol/L BUN 16 (7-17) mg/dL Creatinine 1.0 (0.7-1.2) mg/dL Estimated GFR > 60 ml/min BUN/Creatinine Ratio 16 % Glucose 66 (65-100) mg/dL Calcium 9.7 (8.4-10.2) mg/dL Total Bilirubin 3.40 H (0.1-1.2) mg/dL AST 87 H (5-40) units/L ALT 64 H (7-56) units/L Alkaline Phosphatase 72 (35-129) units/L Total Protein 7.8 (6.3-8.2) g/dL Albumin 4.2 (3.9-5) g/dL Albumin/Globulin Ratio 1.2 % Urine Color [place] (Yellow) Urine Turbidity Slightly-cloudy (Clear) Urine pH 5.0 (5.0-7.0) Ur Specific [place] 1.030 (1.003-1.030) Urine Protein 30 mg/dl (Negative) mg/dL Urine Glucose (UA) Neg (Negative) mg/dL Urine Ketones 20 (Negative) mg/dL Urine Blood Lg (Negative) Urine Nitrite Neg (Negative) Urine Bilirubin Neg (Negative) Urine Urobilinogen 2.0 (<2.0) mg/dL Ur Leukocyte Esterase Tr (Negative) Urine WBC (Auto) 7.0 H (0.0-6.0) /HPF Urine RBC (Auto) 102.0 (0.0-6.0) /HPF U Epithel Cells (Auto) 5.0 (0-13.0) /HPF Urine Bacteria (Auto) 1+ (Negative) /HPF Urine Mucus 1+ /HPF Urine HCG, Qual (Negative) 08/27/19 Range/Units Unknown WBC (4.5-11.0) K/mm3 RBC (3.65-5.03) M/mm3 Hgb (10.1-14.3) gm/dl Hct (30.3-42.9) % MCV (79-97) fl MCH (28-32) pg MCHC (30-34) % RDW (13.2-15.2) % Plt Count (140-440) K/mm3 Lymph % (Auto) (13.4-35.0) % [place] % (Auto) (0.0-7.3) % Eos % (Auto) (0.0-4.3) % Baso % (Auto) (0.0-1.8) % Lymph # (1.2-5.4) K/mm3 [place] # (0.0-0.8) K/mm3 Eos # (0.0-0.4) K/mm3 Baso # (0.0-0.1) K/mm3 Seg Neutrophils % (40.0-70.0) % Seg Neutrophils # (1.8-7.7) K/mm3 Sodium (137-145) mmol/L Potassium (3.6-5.0) mmol/L Chloride (98-107) mmol/L Carbon Dioxide (22-30) mmol/L Anion Gap mmol/L BUN (7-17) mg/dL Creatinine (0.7-1.2) mg/dL Estimated GFR ml/min BUN/Creatinine Ratio % Glucose (65-100) mg/dL Calcium (8.4-10.2) mg/dL Total Bilirubin (0.1-1.2) mg/dL AST (5-40) units/L ALT (7-56) units/L Alkaline Phosphatase (35-129) units/L Total Protein (6.3-8.2) g/dL Albumin (3.9-5) g/dL Albumin/Globulin Ratio % Urine Color (Yellow) Urine Turbidity (Clear) Urine pH (5.0-7.0) Ur Specific [place] (1.003-1.030) Urine Protein (Negative) mg/dL Urine Glucose (UA) (Negative) mg/dL Urine Ketones (Negative) mg/dL Urine Blood (Negative) Urine Nitrite (Negative) Urine Bilirubin (Negative) Urine Urobilinogen (<2.0) mg/dL Ur Leukocyte Esterase (Negative) Urine WBC (Auto) (0.0-6.0) /HPF Urine RBC (Auto) (0.0-6.0) /HPF U Epithel Cells (Auto) (0-13.0) /HPF Urine Bacteria (Auto) (Negative) /HPF Urine Mucus /HPF Urine HCG, Qual Negative (Negative) Urine culture sent - Radiology Data Radiology results: report reviewed CT scan of the abdomen and pelvis with IV contrast dictated by radiologist and report reviewed by myself. Please see details below. Findings. Ultrasound right upper quadrant preliminary report reported no acute findings. Final report pending this was dictated by radiologist and reviewed by myself. [facility] [address] [place] [address] Cat Scan Report Signed Patient: GUY MARX MR#: [id number] : 1980 Acct:[id number] Age/Sex: 39 / F ADM Date: 08/27/19 Loc: ED Attending Dr: Ordering Physician: NIKO PEREIRA Date of Service: 08/27/19 Procedure(s): CT abdomen pelvis w con Accession Number(s): [id number] cc: NIKO PEREIRA CT ABDOMEN AND PELVIS WITH CONTRAST HISTORY: 05/12/2019 COMPARISON: None TECHNIQUE: Routine abdominal and pelvic CT exam performed following intravenous contrast administration.. All CT scans at this location are performed using CT dose reduction for ALARA by means of automated exposure control. FINDINGS: CT ABDOMEN: Lung Bases: No significant abnormality. Liver: No significant abnormality. Biliary: Normal gallbladder and bile ducts. Spleen: No significant abnormality. Unenlarged. Pancreas: No significant abnormality. Adrenals: No significant abnormality. Kidneys: No significant abnormality. Lymphatics: No lymphadenopathy. Vasculature: No significant abnormality. Bowel/Peritoneum: No significant abnormality. No free air. No free fluid. Normal appendix. CT PELVIC: : An enlarged fibroid uterus measures 6.2 x 4.7 x 9.2 cm. This measurement probably does not all of multiple subserosal fibroids. The largest fibroid is subserosal to the right of midline and posterior and measures 4.3 cm. Ovaries are not identified. No adnexal mass or free fluid. Lymphatics: No lymphadenopathy. Osseous Structures: No aggressive appearing osseous lesions. Additional Findings: None IMPRESSION: 1. Normal abdomen. 2. Uterine leiomyomata with a dominant 4.3 cm right fundal subserosal fibroid. Signer Name: Manfred Hutchison MD Signed: 08/27/2019 11:06 AM Workstation Name: [id number] Transcribed By: REF Dictated By: MANFRED HUTCHISON MD Electronically Authenticated By: MANFRED HUTCHISON MD Signed Date/Time: 08/27/19 1106 DD/ 1100 TD/TT: - Medical Decision Making 39-year-old female here for abdominal pain, vomiting diarrhea and generalized weakness since yesterday. CBCs stable with minor abnormalities. CMP stable except minimal decline and sodium 135 potassium mildly elevated at 5.1 BUN and creatinine is normal AST and ALT elevation no more than double normal value and bilirubin is 3.4. Which is elevated. Urine no findings for urinary tract infection and mild dehydration. Culture sent patient denies any substance abuse or taking any medication. She denies any liver disease. Patient given normal saline x1 L and Zofran 8 mg IV in emergency room, Maalox and lidocaine p.o. and she is not able to tolerate oral liquids. CT scan of the abdomen and pelvis shows uterine fibroids otherwise normal. Ultrasound right upper quadrant normal findings. I discussed patient presentation, lab values, CT scan and ultrasound report with Dr. Krause and and decision made to discharge patient home to follow-up with GI and primary care. I discussed diagnosis, treatment plan with patient and she voiced understanding. Patient discharged home in stable con dition. Vital signs stable, afebrile and patient is not in any pain and no nausea or vomiting. Discharged home with prescription for Bactrim and Zofran. - Differential Diagnosis liver dz vs GBD, colitis, appendicitis, hernia, Epreg, uti, enteritis Critical care attestation.: If time is entered above; I have spent that time in minutes in the direct care of this critically ill patient, excluding procedure time. ED Disposition Clinical Impression: Acute cystitis with hematuria, Mild dehydration, Abnormal liver enzymes Nausea & vomiting Qualifiers: Vomiting type: unspecified Vomiting Intractability: non-intractable Qualified Code(s): R11.2 - Nausea with vomiting, unspecified Abdominal pain Qualifiers: Abdominal location: unspecified location Qualified Code(s): R10.9 - Unspecified abdominal pain Disposition: TO HOME OR SELFCARE Is pt being admited?: No Does the pt Need Aspirin: No Condition: Stable Instructions: Dehydration (ED), Urinary Tract Infection in Women (ED), Acute Nausea and Vomiting (ED), Abdominal Pain (ED) Additional Instructions: Please follow-up with your primary care physician and medical office manager in 2 days. You will need to have repeat lab work done and this will be decided by your physician. This is to check your liver function as it was abnormal today. If your condition worsens, return to the emergency room Increase your fluid intake Take medication as prescribed See discharge instruction for diagnosis. See additional information on coronavirus from CDC. This is for your information. Prescriptions: Sulfamethoxazole/Trimethoprim [Bactrim DS TAB] 1 each PO BID 5 Days #10 tablet Ondansetron [Zofran ODT TAB] 8 mg PO Q8HR PRN #12 tab.rapdis PRN Reason: Nausea and vomiting Referrals: Follow-up, [facility] [Other] - 08/29/19 [facility] [Provider Group] - 08/29/19 Forms: Accompanied Note, Work/School Release Form(ED)
[2019-08-27 07:55] LABS: Bacteria,Urine 1+ /HPF (Negative); Bilirubin,Urine NEG (Negative); Blood,Urine LG (Negative); Color,Urine Amber (Yellow); Mucus,Urine 1+ /HPF
[2019-08-27 08:01] LABS: HCG Qualitative,Urine Negative (Negative)
--- NOTE | 2019-08-27 11:11 | Cat Scan Report ---
CT ABDOMEN AND PELVIS WITH CONTRAST HISTORY: 05/12/2019 COMPARISON: None TECHNIQUE: Routine abdominal and pelvic CT exam performed following intravenous contrast administrat ion.. All CT scans at this location are performed using CT dose reduction for ALARA by means of autom ated exposure control. FINDINGS: CT ABDOMEN: Lung Bases: No significant abnormality. Liver: No significant abnormality. Biliary: Normal gallbladder and bile ducts. Spleen: No significant abnormality. Unenlarged. Pancreas: No significant abnormality. Adrenals: No significant abnormality. Kidneys: No significant abnormality. Lymphatics: No lymphadenopathy. Vasculature: No significant abnormality. Bowel/Peritoneum: No significant abnormality. No free air. No free fluid. Normal appendix. CT PELVIC: : An enlarged fibroid uterus measures 6.2 x 4.7 x 9.2 cm. This measurement probably does not all of multiple subserosal fibroids. The largest fibroid is subserosal to the right of midline and posterio r and measures 4.3 cm. Ovaries are not identified. No adnexal mass or free fluid. Lymphatics: No lymphadenopathy. Osseous Structures: No aggressive appearing osseous lesions. Additional Findings: None IMPRESSION: 1. Normal abdomen. 2. Uterine leiomyomata with a dominant 4.3 cm right fundal subserosal fibroid. Signer Name: Boris Herrera MD Signed: 08/27/2019 11:06 AM Workstation Name: [id number]
--- NOTE | 2019-08-27 12:49 | Ultrasound Report ---
ABDOMINAL ULTRASOUND LIMITED (RIGHT UPPER QUADRANT) HISTORY: Abdominal pain. Abnormal liver enzymes. COMPARISON: A same day CT abdomen and pelvis with contrast. TECHNIQUE: Multiple real-time ultrasonographic grayscale images were obtained of the right upper abdo men. FINDINGS: Pancreas: Normal. Liver: Normal liver size, contour and echogenicity. No liver mass. Gallbladder: Normally distended gallbladder with no stones. The colon wall measures 3 mm. Common bile duct: 3 mm. Right kidney: No significant abnormality. No hydronephrosis. Kidney measures 8.5 x 4.1 x 4.7 cm. Additional findings: None. IMPRESSION: 1. No significant abnormality. Signer Name: Boris Herrera MD Signed: 08/27/2019 12:44 PM Workstation Name: [id number]
[2019-08-27 13:48] VITALS: BP 110/66
== END 2019-08-27 13:47 | disposition home or self-care (01) ==
LOC: ED 05:22
DX: N30.01 Acute cystitis with hematuria (principal); E86.0 Dehydration; R94.5 Abnormal results of liver function studies; Z79.899 Other long term (current) drug therapy
CPT/HCPCS: 36415; 74177; 76705; 80053; 81001; 81025; 83690; 85025; 87086; 96361; 96374; 96375; 99284; J1885; J2405; J7030; Q9967

== ENCOUNTER 2020-04-07 07:47 | Emergency (ER) | payer SELFPAY ==
[2020-04-07 08:05] VITALS: BP 121/79
[2020-04-07] MEDS ORDERED: DOCUSATE SODIUM 100 MG/10 ML ORAL LIQD PO ONE (10:16)
--- NOTE | 2020-04-07 10:17 | Emergency Department Report ---
ED ENT HPI - General Chief complaint: Earache Stated complaint: EAR PROBLEMS Time Seen by Provider: 04/07/20 09:54 Source: patient Mode of arrival: Ambulatory Limitations: No Limitations - History of Present Illness Initial comments: 39-year-old female presents to the ER today complaining of right ear discomfort. Patient states that her symptoms started about 2 days ago. 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 She reports fullness to her right ear and decrea sed hearing. She states that she thought it was related to earwax, and so attempted to remove the wax by putting her finger in her ear, she also used some peroxide but she states nothing much came out. She denies any bleeding from the ear or drainage from the ear. She reports no URI symptoms. She denies any fever or chills or any other symptoms at this time. MD complaint: ear pain -: days(s) (2) Location: L ear Severity: moderate - Related Data Previous Rx's Medication Instructions Recorded Last Taken Type Acetaminophen [Non-Aspirin Extra 500 mg PO Q6HR PRN #30 tablet 12/15/19 Unknown Rx Strength] Albuterol Sulfate [Proair 90 mcg IH Q4HR PRN #2 aer.pow.ba 12/15/19 Unknown Rx Respiclick] Metoclopramide [Reglan] 10 mg PO QID PRN #30 tablet 12/15/19 Unknown Rx Fluticasone [Flonase] 2 spray NS QDAY #1 bottle 04/07/20 Unknown Rx Loratadine [Claritin] 10 mg PO DAILY #30 tablet 04/07/20 Unknown Rx Allergies Allergy/AdvReac Type Severity Reaction Status Date / Time No Known Allergies Allergy Verified 07/29/19 05:21 ED Dental HPI - General Chief complaint: Earache Stated complaint: EAR PROBLEMS Time Seen by Provider: 04/07/20 09:54 Source: patient Mode of arrival: Ambulatory Limitations: No Limitations - Related Data Previous Rx's Medication Instructions Recorded Last Taken Type Acetaminophen [Non-Aspirin Extra 500 mg PO Q6HR PRN #30 tablet 12/15/19 Unknown Rx Strength] Albuterol Sulfate [Proair 90 mcg IH Q4HR PRN #2 aer.pow.ba 12/15/19 Unknown Rx Respiclick] Metoclopramide [Reglan] 10 mg PO QID PRN #30 tablet 12/15/19 Unknown Rx Fluticasone [Flonase] 2 spray NS QDAY #1 bottle 04/07/20 Unknown Rx Loratadine [Claritin] 10 mg PO DAILY #30 tablet 04/07/20 Unknown Rx Allergies Allergy/AdvReac Type Severity Reaction Status Date / Time No Known Allergies Allergy Verified 07/29/19 05:21 ED Review of Systems ROS: Stated complaint: EAR PROBLEMS Other details as noted in HPI Comment: All other systems reviewed and negative Constitutional: denies: chills, fever ENT: ear pain Respiratory: denies: cough, shortness of breath, wheezing Cardiovascular: denies: chest pain, palpitations Gastrointestinal: denies: nausea, vomiting Musculoskeletal: denies: back pain, joint swelling, arthralgia, myalgia Neurological: denies: headache, weakness, paresthesias Psychiatric: denies: anxiety, depression Hematological/Lymphatic: denies: easy bleeding, easy bruising ED Past Medical Hx - Past Medical History Previous Medical History?: No Hx Congestive Heart Failure: No Hx Diabetes: No Hx Asthma: No Hx COPD: No Additional medical history: Congenital adrenal hyperplasia - Surgical History Past Surgical History?: No - Social History Smoking Status: Unknown if ever smoked Substance Use Type: None - Medications Home Medications: Home Medications Medication Instructions Recorded Confirmed Last Taken Type Acetaminophen [Non-Aspirin Extra 500 mg PO Q6HR PRN #30 tablet 12/15/19 Unknown Rx Strength] Albuterol Sulfate [Proair 90 mcg IH Q4HR PRN #2 aer.pow.ba 12/15/19 Unknown Rx Respiclick] Metoclopramide [Reglan] 10 mg PO QID PRN #30 tablet 12/15/19 Unknown Rx Fluticasone [Flonase] 2 spray NS QDAY #1 bottle 04/07/20 Unknown Rx Loratadine [Claritin] 10 mg PO DAILY #30 tablet 04/07/20 Unknown Rx ED Physical Exam - General Limitations: No Limitations General appearance: alert, in no apparent distress - Head Head exam: Present: atraumatic, normocephalic, normal inspection - Eye Eye exam: Present: normal appearance, PERRL, EOMI - ENT ENT exam: Present: normal exam, mucous membranes moist, other (Cerumen impaction noted to the right ear canal. TM unable to be seen due to the impaction. Mild cerumen noted to the left ear, but no impaction. TM is able to be seen, with small amount of effusion behind the TM but no signs of infection or perforation.) - Neck Neck exam: Present: normal inspection, full ROM. Absent: meningismus - Respiratory Respiratory exam: Absent: respiratory distress - Cardiovascular Cardiovascular Exam: Present: regular rate - GI/Abdominal GI/Abdominal exam: Present: soft. Absent: distended - Neurological Exam Neurological exam: Present: alert, oriented X3, CN II-XII intact, normal gait - Psychiatric Psychiatric exam: Present: normal affect, normal mood - Skin Skin exam: Present: intact ED Course Vital Signs 04/07/20 04/07/20 08:04 08:05 Temperature 99.5 F Pulse Rate 87 Respiratory 16 Rate Blood Pressure 121/79 [Right] O2 Sat by Pulse 98 Oximetry - Ear Wax Removal Right Ear Cerumenolytic Used: Colace Ear Canal Irrigated by: other (PA) Ear Canal Irrigated With: warm saline using syringe/angiocath Results: Re-examined: cerumen removed completel TM Visible: TM(s) intact, normal appe, other (Mod cloudy effusion noted behind TM) Patient Tolerated Procedure: well, no complications Complications: no problems Critical care attestation.: If time is entered above; I have spent that time in minutes in the direct care of this critically ill patient, excluding procedure time. ED Disposition Clinical Impression: Impacted cerumen of right ear, Eustachian tube dysfunction Disposition: TO HOME OR SELFCARE Is pt being admited?: No Does the pt Need Aspirin: No Condition: Stable Instructions: Cerumen Impaction (ED), Earache (ED) Additional Instructions: Take the Flonase and Claritin as prescribed. Do not use Q-tips to clean your ear. Follow-up with your primary care doctor. Return to the ER if anything changes or worsens with his symptoms. Prescriptions: Loratadine [Claritin] 10 mg PO DAILY #30 tablet Fluticasone [Flonase] 2 spray NS QDAY #1 bottle Referrals: TATA GARCIA MD [Staff Physician] - 3-5 Days Time of Disposition: 11:28
== END 2020-04-07 11:35 | disposition home or self-care (01) ==
LOC: ED 07:47
DX: H61.21 Impacted cerumen, right ear (principal); H69.81 Other specified disorders of Eustachian tube, right ear; Z79.899 Other long term (current) drug therapy